=== PATIENT | male | born 1965 | race Caucasian/White ===

== ENCOUNTER → 2017-06-15 | Outpatient (CLI) | payer OTHER ==
--- NOTE | 2017-06-15 17:49 | DIAGNOSTIC IMAGING REPORT ---
LEFT FOREARM 2 VIEWS ROUTINE CLINICAL HISTORY: FOREARM PAIN L pain COMPARISON: None. DISCUSSION: The bones and joint spaces appear intact. There is no evidence of fracture, dislocation or bony disease. There is no evidence for soft tissue swelling. IMPRESSION: Negative study. The above report was generated using voice recognition software. It may contain grammatical, syntax or spelling errors. Electronically signed by: Venancio Madera M.D. 06/15/2017 5:48 PM Dictated Date/Time: 06/15/2017 5:47 PM
== END | disposition home or self-care (01) ==
LOC: C.RAD 17:35
PROVIDERS: ATTEND Physician Assistant
DX: M79.632 Pain in left forearm (principal); V80.010A Animal-rider injured by fall from or being thrown from horse in noncollision accident, initial encounter; X58.XXXA Exposure to other specified factors, initial encounter

== ENCOUNTER 2025-09-10 14:23 | Inpatient (IN) ==
--- NOTE | 2025-09-10 14:27 | Emergency Department Note ---
Impression & Plan Acute hypoxemic respiratory failure, Asthma with exacerbation ED Provider Note NAME: ANETTE BOSTON AGE: 60 SEX: M : 1965 ARRIVES VIA: Ambulance INFORMANT: Patient, ED PROVIDER(S): Fredi Fernández MD CHIEF COMPLAINT: Shortness of breath, outpatient referral MEDICAL DECISION MAKING: Patient presents with the above. Patient was noted to be 70% on room air here in the department. IV was established and blood work was obtained. Patient will maintain on several liters of nasal cannula supplemental oxygen. Lack of air movement on exam. Patient was ordered 2 g of IV magnesium over 20 minutes, IV methylprednisolone 125 mg, DuoNeb hour-long treatment patient was ordered IV Rocephin and p.o. azithromycin. Blood reassessment the patient was feeling proved. Increased air movement. Patient with a normal white count hemoglobin and platelet count. The patient's kidney function is unremarkable. VBG with a VBG pCO2 of 70 VBG pH is 7 3. Patient with a sugar of 165 nonfasting not DKA. Urinalysis does not show evidence of obvious infection. Given the patient's significant hypoxia with oxygen requirement the patient does require admission at this time. I did speak the on-call hospitalist service, Marsha Connelly PA-C with Dr. Banegas Critical Care: I have personally spent 55 minutes of critical care time in direct management of this patient. This includes bedside care, interpretation of diagnostic studies, and testing, discussion with consultants, patient, and family members, and other require inpatient management activities. This 55 minutes is in excess of all separately billable procedures. Discussion w/ other healthcare providers: Dr. Banegas inpatient medicine service Prior /Outside records reviewed: None Differential diagnosis: Reactive airway disease, pneumonia, pneumothorax, COPD, CHF, ACS, pulmonary embolism, musculoskeletal, GERD as well as other pathologies were considered. Diagnostics, as interpreted by me: ECG: Normal sinus rhythm, ventricular rate of 60, short [place], normal QRS duration, normal axis no ST elevations. Cardiac monitoring: An order was placed for continuous cardiac monitoring. The monitor shows a rate of 65 with sinus rhythm. Patient was placed on pulse oximetry Medical decision rules: None Imaging studies: I informally interpreted the patient's chest x-ray does not show obvious pneumonia or pneumothorax with formal report to follow. HPI: Patient presents due to concern for shortness of breath. The patient reportedly had progressively worsening symptoms over the last 5 or 6 days. History of asthma. Remote history of smoking quit smoking about 10 years ago. The patient has been using his albuterol inhaler but without significant improvement in symptoms. Patient was seen at [facility] walk-in clinic noted to be hypoxic at 82%. He was sent over via ambulance and did receive a DuoNeb treatment. Patient does complain of dyspnea on exertion. No significant dyspnea at rest. The patient has not been to the emergency department for an asthma exacerbation before. Patient states that he is having green productive sputum. He denies any abdominal pain or chest pain. No nausea vomiting or diarrhea. He denies any recent surgeries procedures or hospitalizations no history of heart disease. The patient denies any leg swelling or calf pain no history of DVT or PE. No recent prolonged car plane travel. PAST MEDICAL HISTORY: Asthma, hyperlipidemia PAST SURGICAL HISTORY: See Below SOCIAL HISTORY: Former smoker HOME MEDICATIONS: See Below ALLERGIES: See Below VITALS: See Below PHYSICAL EXAMINATION: GENERAL: NAD, non-toxic. Wearing glasses. EYE EXAM: Normal conjunctiva. PERRL, no anisocoria and EOM's grossly intact w/o pain. OROPHARYNX: Moist mucus membranes, grossly normal dentition. NECK: Trachea midline, no stridor. LUNGS: Clear to auscultation. Normal chest wall mechanics. HEART: NSR, no MRG. ABDOMEN: Abdomen soft, non-tender, no masses, no rebound or guarding. BACK: No CVA TTP. SKIN: No rashes and no bruising. UPPER EXTREMITIES: Upper extremities are grossly normal. LOWER EXTREMITIES: Grossly normal, 1-2+ symmetric lower extremity edema without calf pain or erythema. NEURO EXAM: Awake and alert, follows commands, no obvious facial asymmetry, normal speech, moves all 4 extremities. Past Med/Surg History Problem List (Updated 09/10/25 @ 17:31 by Fredi Fernández MD) Asthma with exacerbation (Acute) Acute hypoxemic respiratory failure (Acute) Social History Smoking Status: Never smoker Preferred Language: Panamanian Feels Safe at Home: Yes Allergies Allergies Allergy/AdvReac Type Severity Reaction Status Date / Time No Known Allergies Allergy Verified 09/10/25 16:18 Home Meds Home Medications Medication Instructions Recorded Confirmed albuterol sulfate 90 mcg/actuation 2 puff inhalation .Q4-6H PRN 09/10/25 09/10/25 aerosol inhaler Wheezing atorvastatin 40 mg tablet 40 mg PO DAILY 09/10/25 09/10/25 metformin 750 mg tablet,extended 750 mg PO BID 09/10/25 09/10/25 release 24 hr Results & Data (ED) Vital Signs Vital Signs - 24 hr 09/10/25 14:33 09/10/25 14:36 09/10/25 14:52 Temperature 36.6 C Temperature Source Oral Pulse Rate 62 63 Pulse Rate [Left Apical] Pulse Rhythm Regular Respiratory Rate 20 Respiratory Effort / Characteristics Respiratory Depth Normal Respiratory Pattern Blood Pressure 149/85 H Blood Pressure [Left Arm] Blood Pressure Mean 106 Blood Pressure Mean [Left Arm] Blood Pressure Position Sitting Pulse Oximetry 79 L 98 Oxygen Delivery Method Room Air Nasal Cannula Oxygen Flow Rate 2 Sepsis Recent Fever Within 48 Hours No Sepsis New/Unexplained Change in Mental Status No Sepsis Action Taken by Nursing No Action Required 09/10/25 15:28 09/10/25 16:10 09/10/25 17:00 Temperature Temperature Source Pulse Rate Pulse Rate [Left Apical] 65 72 Pulse Rhythm Respiratory Rate 22 16 Respiratory Effort / Characteristics Non-Labored Spontaneous Non-Labored Spontaneous Respiratory Depth Normal Normal Respiratory Pattern Regular Regular Blood Pressure Blood Pressure [Left Arm] 145/79 H 155/81 H Blood Pressure Mean Blood Pressure Mean [Left Arm] 101 105 Blood Pressure Position Pulse Oximetry 97 96 90 Oxygen Delivery Method Nebulizer Nasal Cannula Nasal Cannula Oxygen Flow Rate 7 2 5 Sepsis Recent Fever Within 48 Hours Sepsis New/Unexplained Change in Mental Status Sepsis Action Taken by [facility] Medications Current Medication List: was personally reviewed by me Laboratory Data Attestation: I reviewed the patient's lab results. 09/10/25 14:45 09/10/25 14:45 Lab Results 09/10/25 09/10/25 Range/Units 14:45 16:59 WBC 8.18 (4.8-10.8) K/ul RBC 4.96 (4.70-6.10) M/uL Hgb 15.3 (14.0-18.0) g/dl Hct 47.8 (42.0-52.0) % MCV 96.4 (80.0-100.0) fL MCH 30.8 (25.0-34.0) pg MCHC 32.0 (32.0-36.0) g/dL RDW Std Deviation 49.5 H (36.4-46.3) fL RDW Coeff of Josiah 14.6 H (11.5-14.5) % Plt Count 278 (130-400) K/uL MPV 9.4 (9.4-12.4) fL Immature Gran % (Auto) 0.4 % Neut % (Auto) 64.9 % Lymph % (Auto) 22.1 % [place] % (Auto) 8.6 % Eos % (Auto) 3.4 % Baso % (Auto) 0.6 % Neut # (Auto) 5.31 (1.40-6.50) K/uL Lymph # (Auto) 1.81 (1.20-3.40) K/uL [place] # (Auto) 0.70 H (0.11-0.59) K/uL Eos # (Auto) 0.28 (0.00-0.50) K/uL Baso # (Auto) 0.05 (0.00-0.20) K/uL Immature Gran # (Auto) 0.03 (0.01-0.20) K/uL VBG pH 7.30 L (7.36-7.41) VBG pCO2 70 H (38-50) mmHg VBG pO2 43 mmHg VBG HCO3 34 mmol/L VBG O2 Saturation 68.2 % VBG Base Excess 5.6 mEq/L Sodium 140 (136-145) mmol/L Potassium 4.6 (3.5-5.1) mmol/L Chloride 97 L (98-107) mmol/L Carbon Dioxide 36 H (21-32) mmol/L Anion Gap 7 (3-11) BUN 15 (6-23) mg/dl Creatinine 0.84 (0.6-1.4) mg/dl Est Cr Clr Drug Dosing 112.2 ml/min eGFR 99.83 BUN/Creatinine Ratio 17.9 (10-20) Glucose 165 H (70-99(Fasting)) mg/dl Calcium 9.9 (8.6-10.3) mg/dl Magnesium 2.0 (1.7-2.4) mg/dl Total Bilirubin 0.4 (0.2-1.0) mg/dl AST 24 (13-39) U/L ALT 45 (7-52) U/L Alkaline Phosphatase 144 H (34-104) U/L Total Protein 7.7 (6.0-8.3) gm/dl Albumin 4.4 (3.4-5.0) gm/dl Globulin 3.3 (2.5-4.0) gm/dl Albumin/Globulin Ratio 1.3 (0.9-2) Procalcitonin < 0.02 (0-0.5) ng/ml Urine Color Yellow Urine Appearance Clear (Clear) Urine pH 7.0 (4.5-7.5) Ur Specific [place] 1.014 (1.000-1.030) Urine Protein Trace H (Negative) Urine Glucose (UA) Negative (Negative) Urine Ketones Negative (Negative) Urine Blood Negative (Negative) Urine Nitrite Negative (Negative) Urine Bilirubin Negative (Negative) Urine Urobilinogen Negative (Negative) Ur Leukocyte Esterase Negative (Negative) Urine WBC (Auto) 0-5 (0-5) /hpf Urine RBC (Auto) 0-2 (0-2) /hpf U Hyaline Cast (Auto) 0-2 (0-2) /lpf U Epithel Cells (Auto) 0-2 (0-2) /hpf Urine Bacteria (Auto) None Seen (None Seen) Urine Comment Adenovirus (PCR) Not Detected (NotDetected) B. pertussis DNA (PCR) Not Detected (NotDetected) B.parapertussis DNA PCR Not Detected (NotDetected) C. pneumoniae DNA (PCR) Not Detected (NotDetected) Coronavirus OC43 (PCR) Not Detected (NotDetected) Coronavirus HKU1 (PCR) Not Detected (NotDetected) Coronavirus 229E (PCR) Not Detected (NotDetected) SARS-CoV-2 (PCR) Not Detected (NotDetected) Coronavirus NL63 (PCR) Not Detected (NotDetected) Human Metapneumovir PCR Not Detected (NotDetected) Influenza Type A (PCR) Not Detected (NotDetected) Influenza Type B (PCR) Not Detected (NotDetected) M. pneumoniae (PCR) Not Detected (NotDetected) Parainfluenza 1 (PCR) Not Detected (NotDetected) Parainfluenza 2 (PCR) Not Detected (NotDetected) Parainfluenza 3 (PCR) Not Detected (NotDetected) Parainfluenza 4 (PCR) Not Detected (NotDetected) RSV (PCR) Not Detected (NotDetected) Entero/Rhino (PCR) Not Detected (NotDetected) Administered Medications Discontinued Medications Albuterol (Albut/Ipratrop 3mg/0.5mg Neb 3 Ml Vial) 12 ml INH ONE STA Stop: 09/10/25 14:52 Last Admin: 09/10/25 15:02 Dose: 12 ml Documented By: watson Azithromycin (Azithromycin 250 Mg Tab) 500 mg PO NOW ONE Stop: 09/10/25 15:33 Last Admin: 09/10/25 15:48 Dose: 500 mg Documented By: [facility] Magnesium Sulfate/Dextrose (Magnesium Sulfate / D5w) 1 gm in 100 mls @ 600 mls/hr IV Q10M KENNEY Stop: 09/10/25 15:11 Last Infusion: 09/10/25 15:40 Dose: Infused Documented By: [facility] Admin: 09/10/25 15:26 Dose: 600 mls/hr Documented By: Infusion: 09/10/25 15:15 Dose: Infused Documented By: [facility] Admin: 09/10/25 15:04 Dose: 600 mls/hr Documented By: watson Sodium Chloride (Nss) 500 mls @ 999 mls/hr IV .Q31M ONE Stop: 09/10/25 15:21 Last Infusion: 09/10/25 15:52 Dose: Infused Documented By: [facility] Admin: 09/10/25 15:05 Dose: 999 mls/hr Documented By: watson Ceftriaxone Sodium (Rocephin) 2,000 mg in 50 mls @ 100 mls/hr IV NOW STA Stop: 09/10/25 16:01 Last Infusion: 09/10/25 16:25 Dose: Infused Documented By: watson Admin: 09/10/25 15:52 Dose: 100 mls/hr Documented By: [facility] Methylprednisolone (Methylprednisolone 125 Mg/2 Ml Vial) 125 mg IV NOW STA Stop: 09/10/25 14:52 Last Admin: 09/10/25 15:04 Dose: 125 mg Documented By: watson Imaging Data Radiologist's Impression: Chest X-Ray 09/10/25 14:52 XR chest 1V portable CLINICAL HISTORY: Dyspnea COMPARISON STUDY: None FINDINGS: Heart size and pulmonary vasculature are normal. No consolidation or pleural effusion seen. No pneumothorax. IMPRESSION: No acute findings. ACT 112: Negative or not required by law. Electronically signed by: Alden White M.D. 09/10/2025 3:14 PM Discharge Plan Visit Data Chief Complaint: Shortness of Breath/Dyspnea Stated Complaint: SOB ED Provider: Fredi Fernández Discharge Problem: Acute hypoxemic respiratory failure, Asthma with exacerbation Patient Disposition: Admitted As Inpatient Condition: Good Forms Stand Alone Forms: [facility] [employer] Prescriptions Prescriptions: No Action metformin 750 mg tablet extended release 24 hr 750 mg PO BID atorvastatin 40 mg tablet 40 mg PO DAILY albuterol sulfate 90 mcg/actuation HFA aerosol inhaler 2 puff INHALATION .Q4-6H PRN (Reason: Wheezing) Referrals Referrals: Kayce Esquivel PA-C [Outside Practitioners] - Discharge Problem: Asthma with exacerbation Qualifiers: Asthma severity: severe Asthma persistence: unspecified Qualified Code(s): J 45.901 - Unspecified asthma with (acute) exacerbation
[2025-09-10] MEDS: ALBUT/IPRATROP 3MG/0.5MG NEB 3 ML VIAL INH STA (15:02)
[2025-09-10] MEDS: MAGNESIUM SULFATE / D5W 1 GM/100 ML BAG IV SCH (15:04)
[2025-09-10] MEDS: SODIUM CHLORIDE 0.9% 500 ML IV ONE (15:05)
[2025-09-10 15:06] LABS: Hematocrit (blood only) 47.8 % (42.0-52.0); Hemoglobin 15.3 g/dl (14.0-18.0); Immature Granulocytes # (auto) 0.03 K/uL (0.01-0.20); Immature Granulocytes % (auto) 0.4 %; Mean Corpuscular Hemoglobin 30.8 pg (25.0-34.0); Mean Corpuscular Volume 96.4 fL (80.0-100.0); Platelet Count 278 K/uL (130-400); RDW Standard Deviation 49.5 fL (36.4-46.3); Red Blood Count 4.96 M/uL (4.70-6.10); White Blood Count 8.18 K/ul (4.8-10.8)
--- NOTE | 2025-09-10 15:16 | XRay Report ---
XR chest 1V portable CLINICAL HISTORY: Dyspnea COMPARISON STUDY: None FINDINGS: Heart size and pulmonary vasculature are normal. No consolidation or pleural effusion seen. No pneumothorax. IMPRESSION: No acute findings. ACT 112: Negative or not required by law. Electronically signed by: Alden White M.D. 09/10/2025 3:14 PM
[2025-09-10 15:25] LABS: Alanine Aminotransferase 45.0 U/L (7-52); Albumin Globulin Ratio 1.3 (0.9-2); Albumin Level 4.4 gm/dl (3.4-5.0); Alkaline Phosphatase 144.0 U/L (34-104); Anion Gap 7.0 (3-11); Bilirubin,Total 0.4 mg/dl (0.2-1.0); Blood Urea Nitrogen 15.0 mg/dl (6-23); Calcium 9.9 mg/dl (8.6-10.3); Carbon Dioxide 36.0 mmol/L (21-32); Chloride 97.0 mmol/L (98-107); Creatinine Clr Calc Pharmacy 112.2 ml/min; Globulin 3.3 gm/dl (2.5-4.0); Glucose 165.0 mg/dl (70-99(Fasting)); Magnesium 2.0 mg/dl (1.7-2.4); Potassium 4.6 mmol/L (3.5-5.1); Sodium 140.0 mmol/L (136-145); Total Protein 7.7 gm/dl (6.0-8.3)
[2025-09-10] MEDS: AZITHROMYCIN 250 MG TAB PO ONE (15:48)
[2025-09-10 15:49] LABS: Chlamydia pneumoniae PCR Not Detected (NotDetected); Coronavirus 229E PCR Not Detected (NotDetected); Coronavirus CoV-2 (COVID19)PCR Not Detected (NotDetected); Coronavirus HKU1 PCR Not Detected (NotDetected); Coronavirus NL63 PCR Not Detected (NotDetected); Coronavirus OC43PCR Not Detected (NotDetected); Human Metapneumovirus PCR Not Detected (NotDetected); Parainfluenza Virus 1 PCR Not Detected (NotDetected); Parainfluenza Virus 2 PCR Not Detected (NotDetected); Parainfluenza Virus 3 PCR Not Detected (NotDetected); Parainfluenza Virus 4 PCR Not Detected (NotDetected); Respiratory Syncytial VirusPCR Not Detected (NotDetected); Rhinovirus/Enterovirus PCR Not Detected (NotDetected)
[2025-09-10] MEDS: cefTRIAXone SODIUM 2,000 MG/50 ML BAG IV STA (15:52)
[2025-09-10 17:09] LABS: Base Excess VBG 5.6 mEq/L; HCO3 VBG 34 mmol/L; Oxygen Saturation VBG 68.2 %; PCO2 VBG 70 mmHg (38-50); PO2 VBG 43 mmHg; pH VBG 7.30 (7.36-7.41)
[2025-09-10 17:11] LABS: Appearance Urine Clear (Clear); Bacteria Urine Automated None Seen (None Seen); Cast Urine Automated 0-2 /lpf (0-2); Epithelial Cell Urine Auto 0-2 /hpf (0-2); Glucose Urine UA Negative (Negative); RBC Urine Automated 0-2 /hpf (0-2); WBC Urine Automated 0-5 /hpf (0-5)
--- NOTE | 2025-09-10 17:11 | History & Physical Report ---
Date of Service September 10, 2025 Assessment & Plan (1) Acute hypoxemic respiratory failure: (2) Asthma with exacerbation: (3) Type 2 diabetes mellitus: (4) Dyslipidemia: Plan This is a 60 y/o male with a history of asthma, dyslipidemia, and diabetes who presented to the ED from urgent care today with worsening shortness of breath and low oxygen sats. Initial work-up in the ED revealed pulse 79% on RA so oxygen initiated. Given 2 g of mag sulfate, hour long neb, methylprednisolone 125 mg, and empiric antibiotics with azithromycin/ceftriaxone. Referred for admission due to persistent oxygen requirement. Labs included CO2 elevated at 36, WBCs normal at 8.18. Pt referred for admission for further workup and management. VBG ordered and showed pH low at 7.30, pCO2 elevated at 70. BioFire negative. #Hypoxic respiratory failure - may be multifactorial #Possible pneumonia #Asthma vs. COPD with exacerbation - Admit to PCU - CT chest to r/o PE - Continue antibiotics with azithromycin/ceftriaxone - IV methylprednisolone 40 mg BID - DuoNeb QID scheduled, Q2 hrs prn - BiPAP due to respiratory acidosis with CO2 retention - repeat ABG one hour after starting BiPAP - Sputum culture - Incentive spirometry, flutter valve - Continue supplemental O2 to maintain sats - ECHO, check BNP to evaluate for cardiac component to symptoms #Type 2 Diabetes - Hold metformin - Diabetic diet - BSG ACHS - A1c in the AM #Dyslipidemia - Chronic, continue statin - Lipid panel in the AM CT chest showed heavy coronary calcifications - add aspirin 81 mg daily, await ECHO, may need cardio eval Pt seen and reviewed with collaborating physician, Dr. Banegas. Plan of care discussed and as outlined above. Code status: full code DVT prophylaxis: Valeria Connelly PA-C History of Present Illness Chief Complaint: worsening trouble breathing Primary Care Provider: NO PCP This is a 60 y/o male with a history of asthma, dyslipidemia, and diabetes who presented to the ED from urgent care today with worsening shortness of breath and low oxygen sats. Pt reports ongoing respiratory issues for several years for which he has seen his PCP multiples times and has been given inhalers, which he never felt like helped much. However, over the last few weeks, his breathing has significantly worsened. He notes dyspnea with exertion, that worsens by evening. He notes wheezing, especially with exertion and at night. He has a chronic cough, productive of sputum but no hemoptysis. Cough has not significantly worsened over the last few weeks. He denies fevers, chills, night sweats, unexplained weight loss, chest pain. He occasionally has the sensation of heart skipping a beat, no racing heart. He has noted chest tightness at times. 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 He quit smoking several years ago. He denies history of pneumonia as an adult but notes that he was intermittently admitted due to respiratory issues his first year of life. Allergies Allergy/AdvReac Type Severity Reaction Status Date / Time No Known Allergies Allergy Verified 09/10/25 16:18 Home Medications Medication Instructions Recorded Confirmed Type albuterol sulfate 90 mcg/actuation 2 puff inhalation .Q4-6H PRN 09/10/25 09/10/25 History aerosol inhaler Wheezing atorvastatin 40 mg tablet 40 mg PO DAILY 09/10/25 09/10/25 History metformin 750 mg tablet,extended 750 mg PO BID 09/10/25 09/10/25 History release 24 hr Past Med/Surg History Problem List (Updated 09/10/25 @ 18:09 by Jennifer Connelly PA-C) Asthma with exacerbation (Acute) Acute hypoxemic respiratory failure (Acute) Medical History (Updated 09/10/25 @ 18:09 by Jennifer Connelly PA-C) Former tobacco use Asthma Type 2 diabetes mellitus Dyslipidemia Social History (Updated 09/10/25 @ 17:37 by Jennifer Connelly PA-C) Smoking Status: Former smoker Hx Alcohol Use: No Hx Substance Use: No Preferred Language: Filipino current occupational status: employed 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 Feels Safe at Home: Yes Review of Systems Review of Systems: All systems reviewed & are unremarkable except as noted in Subjective Physical Exam Physical Exam: General: awake, alert, NAD HEENT: no scleral icterus, moist oral mucosa Neck: supple, trachea midline Heart: RRR Lungs: diminished breath sounds throughout, faint crackles at bilateral bases, faint end exp wheeze Abdomen: soft, NT, +BS Extremities: no pedal edema Skin: warm, dry, no jaundice or cyanosis Neurologic: Ox3, no confusion or dysarthria Results & Data Results & Data Vital Signs (Past 12 Hours) Vital Signs Temp Pulse Pulse Resp BP BP Pulse Ox 09/10/25 17:00 72 16 155/81 H 90 09/10/25 16:10 96 09/10/25 15:28 65 22 145/79 H 97 09/10/25 14:52 98 09/10/25 14:36 63 09/10/25 14:33 36.6 C 62 20 149/85 H 79 L O2 Del Method O2 Flow Rate 09/10/25 17:00 Nasal Cannula 5 09/10/25 16:10 Nasal Cannula 2 09/10/25 15:28 Nebulizer 7 09/10/25 14:52 Nasal Cannula 2 09/10/25 14:36 09/10/25 14:33 Room Air Laboratory Results Lab Results 09/10/25 09/10/25 Range/Units 14:45 16:59 WBC 8.18 (4.8-10.8) K/ul RBC 4.96 (4.70-6.10) M/uL Hgb 15.3 (14.0-18.0) g/dl Hct 47.8 (42.0-52.0) % MCV 96.4 (80.0-100.0) fL MCH 30.8 (25.0-34.0) pg MCHC 32.0 (32.0-36.0) g/dL RDW Std Deviation 49.5 H (36.4-46.3) fL RDW Coeff of Josiah 14.6 H (11.5-14.5) % Plt Count 278 (130-400) K/uL MPV 9.4 (9.4-12.4) fL Immature Gran % (Auto) 0.4 % Neut % (Auto) 64.9 % Lymph % (Auto) 22.1 % [place] % (Auto) 8.6 % Eos % (Auto) 3.4 % Baso % (Auto) 0.6 % Neut # (Auto) 5.31 (1.40-6.50) K/uL Lymph # (Auto) 1.81 (1.20-3.40) K/uL [place] # (Auto) 0.70 H (0.11-0.59) K/uL Eos # (Auto) 0.28 (0.00-0.50) K/uL Baso # (Auto) 0.05 (0.00-0.20) K/uL Immature Gran # (Auto) 0.03 (0.01-0.20) K/uL VBG pH 7.30 L (7.36-7.41) VBG pCO2 70 H (38-50) mmHg VBG pO2 43 mmHg VBG HCO3 34 mmol/L VBG O2 Saturation 68.2 % VBG Base Excess 5.6 mEq/L Sodium 140 (136-145) mmol/L Potassium 4.6 (3.5-5.1) mmol/L Chloride 97 L (98-107) mmol/L Carbon Dioxide 36 H (21-32) mmol/L Anion Gap 7 (3-11) BUN 15 (6-23) mg/dl Creatinine 0.84 (0.6-1.4) mg/dl Est Cr Clr Drug Dosing 112.2 ml/min eGFR 99.83 BUN/Creatinine Ratio 17.9 (10-20) Glucose 165 H (70-99(Fasting)) mg/dl Calcium 9.9 (8.6-10.3) mg/dl Magnesium 2.0 (1.7-2.4) mg/dl Total Bilirubin 0.4 (0.2-1.0) mg/dl AST 24 (13-39) U/L ALT 45 (7-52) U/L Alkaline Phosphatase 144 H (34-104) U/L Total Protein 7.7 (6.0-8.3) gm/dl Albumin 4.4 (3.4-5.0) gm/dl Globulin 3.3 (2.5-4.0) gm/dl Albumin/Globulin Ratio 1.3 (0.9-2) Procalcitonin < 0.02 (0-0.5) ng/ml Urine Color Yellow Urine Appearance Clear (Clear) Urine pH 7.0 (4.5-7.5) Ur Specific [place] 1.014 (1.000-1.030) Urine Protein Trace H (Negative) Urine Glucose (UA) Negative (Negative) Urine Ketones Negative (Negative) Urine Blood Negative (Negative) Urine Nitrite Negative (Negative) Urine Bilirubin Negative (Negative) Urine Urobilinogen Negative (Negative) Ur Leukocyte Esterase Negative (Negative) Urine WBC (Auto) 0-5 (0-5) /hpf Urine RBC (Auto) 0-2 (0-2) /hpf U Hyaline Cast (Auto) 0-2 (0-2) /lpf U Epithel Cells (Auto) 0-2 (0-2) /hpf Urine Bacteria (Auto) None Seen (None Seen) Urine Comment Adenovirus (PCR) Not Detected (NotDetected) B. pertussis DNA (PCR) Not Detected (NotDetected) B.parapertussis DNA PCR Not Detected (NotDetected) C. pneumoniae DNA (PCR) Not Detected (NotDetected) Coronavirus OC43 (PCR) Not Detected (NotDetected) Coronavirus HKU1 (PCR) Not Detected (NotDetected) Coronavirus 229E (PCR) Not Detected (NotDetected) SARS-CoV-2 (PCR) Not Detected (NotDetected) Coronavirus NL63 (PCR) Not Detected (NotDetected) Human Metapneumovir PCR Not Detected (NotDetected) Influenza Type A (PCR) Not Detected (NotDetected) Influenza Type B (PCR) Not Detected (NotDetected) M. pneumoniae (PCR) Not Detected (NotDetected) Parainfluenza 1 (PCR) Not Detected (NotDetected) Parainfluenza 2 (PCR) Not Detected (NotDetected) Parainfluenza 3 (PCR) Not Detected (NotDetected) Parainfluenza 4 (PCR) Not Detected (NotDetected) RSV (PCR) Not Detected (NotDetected) Entero/Rhino (PCR) Not Detected (NotDetected) Diagnostic Findings Chest X-Ray 09/10/25 14:52 XR chest 1V portable CLINICAL HISTORY: Dyspnea COMPARISON STUDY: None FINDINGS: Heart size and pulmonary vasculature are normal. No consolidation or pleural effusion seen. No pneumothorax. IMPRESSION: No acute findings. ACT 112: Negative or not required by law. Electronically signed by: Alden White M.D. 09/10/2025 3:14 PM Medications Administered Discontinued Medications Albuterol (Albut/Ipratrop 3mg/0.5mg Neb 3 Ml Vial) 12 ml INH ONE STA Stop: 09/10/25 14:52 Last Admin: 09/10/25 15:02 Dose: 12 ml Documented By: watson Azithromycin (Azithromycin 250 Mg Tab) 500 mg PO NOW ONE Stop: 09/10/25 15:33 Last Admin: 09/10/25 15:48 Dose: 500 mg Documented By: GEETA Magnesium Sulfate/Dextrose (Magnesium Sulfate / D5w) 1 gm in 100 mls @ 600 mls/hr IV Q10M KENNEY Stop: 09/10/25 15:11 Last Infusion: 09/10/25 15:40 Dose: Infused Documented By: Admin: 09/10/25 15:26 Dose: 600 mls/hr Documented By: Infusion: 09/10/25 15:15 Dose: Infused Documented By: Admin: 09/10/25 15:04 Dose: 600 mls/hr Documented By: watson Sodium Chloride (Nss) 500 mls @ 999 mls/hr IV .Q31M ONE Stop: 09/10/25 15:21 Last Infusion: 09/10/25 15:52 Dose: Infused Documented By: Admin: 09/10/25 15:05 Dose: 999 mls/hr Documented By: watson Ceftriaxone Sodium (Rocephin) 2,000 mg in 50 mls @ 100 mls/hr IV NOW STA Stop: 09/10/25 16:01 Last Infusion: 09/10/25 16:25 Dose: Infused Documented By: watson Admin: 09/10/25 15:52 Dose: 100 mls/hr Documented By: GIUSEPPE Ioversol (Optiray 320 125ml) 120 ml IV ONCE ONE Stop: 09/10/25 17:35 Last Admin: 09/10/25 17:34 Dose: 120 ml Documented By: YOLANDA Methylprednisolone (Methylprednisolone 125 Mg/2 Ml Vial) 125 mg IV NOW STA Stop: 09/10/25 14:52 Last Admin: 09/10/25 15:04 Dose: 125 mg Documented By: watson Supervising Physician Co-Signing Physician Notes Attending Addendum: Case reviewed with the advanced practitioner. I have personally performed a history and physical examination on the patient. I have reviewed the advanced practitioner's documentation on the date of service referenced in note, and I agree with, and take responsibility for the plan of care. please refer to her notes for full details patient seen and examined, records reviewed by myself as well on exam, patient seen resting in bed, comfortable on Bipap states breathing is about the same no active shortness of breath, chest pain no other symptoms VS noted and reviewed oriented x3 not in distress, speaks in sentences with no effort nor accessory muscle use normal rate, regular rhythm, no murmurs diminished breath sounds billaterally, no wheezing non distended, soft, nontender no bipedal edema, erythema, warmth no neuro deficits all labs, imaging noted and reviewed ASSESSMENT AND PLAN> COPD EXACERBATION POSSIBLE MILD PNEUMONIA HYPERCAPNEIC RESPIRATORY SECONDARY TO ABOVE CT chest no acute PE IV steroids, Nebs scheduled, IV Ceftri + Azithro continue Bipap Pulm Consult other diagnoses and plan of care as per advanced practitioner's notes I spent a total of 40 minutes coordinating, documenting, and providing care for this patient, excluding time spent in the performance of separately billed services or time spent by another provider/QHP. 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
[2025-09-10] MEDS: OPTIRAY 320 125ml IV ONE (17:34)
--- NOTE | 2025-09-10 17:51 | CT Scan Report ---
CT pulmonary angiogram with IV contrast History: Chest pain COMPARISON: None TECHNIQUE: CT angiography of the chest was performed without IV contrast followed by IV contrast, including 3D post processing CTA image reconstruction. Dose reduction techniques were achieved by using automatic exposure control and/or adjustment of mA and/or kV according to patient size and/or use of iterative reconstruction technique. FINDINGS: Diagnostic quality: Adequate There is no evidence for pulmonary embolism. The heart is not enlarged. There is no pericardial effusion. There are no abnormally enlarged hilar or mediastinal lymph nodes. Calcified subcarinal and right hilar lymph nodes due to old granulomatous disease. Heavy coronary calcifications. The central tracheobronchial tree is clear. The lungs are clear. There is no pleural effusion. Mild streaky bibasilar atelectasis. The lungs appear emphysematous. Limited visualized upper abdomen. No destructive osseous changes are seen. IMPRESSION: No evidence for pulmonary embolism. Electronically signed by Jose Patino 09-10-2025 5:49 PM
[2025-09-10] MEDS: ALBUT/IPRATROP 3MG/0.5MG NEB 3 ML VIAL NEB SCH (19:38)
[2025-09-10 20:13] LABS: iSTAT Art Bld Gas Base Excess 4.0 mmol/L (-9-1.8); iSTAT Art Bld Gas pCO2 Correct 67 mmHg (35-46); iSTAT Art Bld Gas pH Corrected 7.276 (7.35-7.45); iSTAT Arterial Blood Gas pO2 C 73
[2025-09-10] MEDS ORDERED: GLUCAGON FOR INJ 1 MG VIAL SQ PRN (20:36)
[2025-09-10] MEDS ORDERED: CARBOHYDRATES FOR HYPOGLYCEMIA PO PRN (20:36)
[2025-09-10] MEDS ORDERED: GLUCOSE 40% GEL 15 GM TUBE PO PRN (20:36)
[2025-09-10] MEDS ORDERED: DEXTROSE 50% 50 ML SYRINGE IV PRN (20:36)
[2025-09-10] MEDS ORDERED: ACETAMINOPHEN 325 MG TAB PO PRN (20:36)
[2025-09-10] MEDS ORDERED: GLUCOSE 10 TAB/TUBE PO PRN (20:36)
[2025-09-10 20:52] LABS: Base Excess VBG 3.6 mEq/L; HCO3 VBG 31 mmol/L; Oxygen Saturation VBG 94.0 %; PCO2 VBG 61 mmHg (38-50); PO2 VBG 71 mmHg; pH VBG 7.32 (7.36-7.41)
[2025-09-10] MEDS: INSULIN ASPART PER UNIT CHARGE SC SCH (21:04)
[2025-09-10] MEDS: guaiFENesin 600 MG TABCR PO SCH (21:05)
[2025-09-11] MEDS: ASPIRIN 81 MG ECTAB PO SCH (01:49)
[2025-09-11 06:05] LABS: Hematocrit (blood only) 45.6 % (42.0-52.0); Hemoglobin 14.7 g/dl (14.0-18.0); Immature Granulocytes # (auto) 0.03 K/uL (0.01-0.20); Immature Granulocytes % (auto) 0.3 %; Mean Corpuscular Hemoglobin 30.9 pg (25.0-34.0); Mean Corpuscular Volume 96.0 fL (80.0-100.0); Platelet Count 273 K/uL (130-400); RDW Standard Deviation 49.4 fL (36.4-46.3); Red Blood Count 4.75 M/uL (4.70-6.10); White Blood Count 9.43 K/ul (4.8-10.8)
[2025-09-11 06:25] LABS: Anion Gap 6.0 (3-11); Blood Urea Nitrogen 15.0 mg/dl (6-23); Calcium 9.5 mg/dl (8.6-10.3); Carbon Dioxide 33.0 mmol/L (21-32); Chloride 99.0 mmol/L (98-107); Cholesterol 96.0 mg/dl (0-200); Creatinine Clr Calc Pharmacy 105.6 ml/min; Glucose 198.0 mg/dl (70-99(Fasting)); HDL Cholesterol 35.0 mg/dl; Potassium 5.4 mmol/L (3.5-5.1); Sodium 138.0 mmol/L (136-145); Triglycerides 82.0 mg/dl (0-150)
[2025-09-11 07:37] LABS: Hemoglobin A1C 8.5 % (4.5-5.6)
[2025-09-11 08:12] LABS: Base Excess VBG 9.4 mEq/L; HCO3 VBG 39 mmol/L; Oxygen Saturation VBG 73.5 %; PCO2 VBG 77 mmHg (38-50); PO2 VBG 44 mmHg; pH VBG 7.31 (7.36-7.41)
[2025-09-11] MEDS ORDERED: methylPREDNISolone 10 mg/mL (For Ped Dose < 7mg) IV SCH (09:00)
[2025-09-11] MEDS: ENOXAPARIN INJ 40 MG/0.4 ML SYR SQ SCH (09:08)
[2025-09-11] MEDS: ATORVASTATIN 40 MG TAB PO SCH (09:09)
[2025-09-11] MEDS: AZITHROMYCIN 250 MG TAB PO SCH (09:09)
[2025-09-11] MEDS: FLUTICASONE/VILANTEROL 100/25MCG 14 PUFFS/INHALER INH SCH (10:43)
--- NOTE | 2025-09-11 10:43 | Hospitalist Progress Note ---
Date of Service September 11, 2025 Assessment & Plan (1) Acute hypoxemic respiratory failure: (2) Asthma with exacerbation: (3) Type 2 diabetes mellitus: (4) Dyslipidemia: Plan Mr. Ernst is a 60 year old gentleman with a history of asthma, prior tobacco use (1-2 packs per day, quit 10 years ago), dyslipidemia, and diabetes, as well as occupational [place] exposure is admitted for evaluation of dyspnea on exertion and found to have acute hypoxic hypercapnic respiratory failure. CT was negative for PE, but revealed emphysematous changes, atelectasis, and calcified granulomas. It also is noted that patient has heavy coronary calcifications. He reports family history of CAD, but denies evaluation on himself. Suspect there is possibly a cardiac v pulm overlap in patient's presentation, with possible overlapping ZAMZAM. #Acute on chronic hypoxic hpercapnic respiratory failure - may be multifactorial #COPD with exacerbation, iso emphysematous changes on CT CT chest to r/o PE negative for PE, but noted emphysematous changes suspect acute acidosis with compensation Occupational exposure to [place] dust and prior tobacco use Pro bob <0.02, will continue with Azithromycin in setting of presumptive COPD, will discontinue CTX Continue IV methylprednisolone 40 mg BID Continue DuoNeb QID scheduled, Q2 hrs prn Start Breo inhaler Incentive spirometry, flutter valve Continue supplemental O2 to maintain sats Overnight pulse oximetry needs polysomnography as op wean o2, goal 88-90% #Coronary artery disease, per imaging patient never underwent cardiac workup previously CT with heavy coronary artery calcification BNP 29 ECHO pending continue statin and asa #Type 2 Diabetes A1C 8.5% this am - Hold metformin - Diabetic diet - BSG ACHS #Dyslipidemia - Chronic, continue statin LDL at goal, <70 Code status: full code DVT prophylaxis: Lovenox Admission and Anticipated Discharge Date Admission Date: September 10, 2025 Subjective Patient states that he doesn't feel "tight" or "wheezing", but just short of breath. He also reports fatigue and tiredness, as well as forgetfulness. He denies chest pain or anginal symptoms on exertion. He reports family history of heart disease, but denies any history for himself. Patient's girlfriend also reports patient snores very loudly, that it shakes the bed. Physical Exam Constitutional: WD/WN, vitals as above Respiratory: diminished, no crackles or wheezing audible Cardiovascular: RRR, no murmur, no edema Gastrointestinal (Abdomen): normal bowel sounds, soft, nontender, no hepatosplenomegaly Results & Data Results & Data Vital Signs (Past 12 Hours) Vital Signs Temp Pulse Pulse Resp BP BP Pulse Ox 09/11/25 09:43 09/11/25 07:52 36.5 C 64 18 148/77 H 92 09/11/25 07:30 58 L 15 91 09/11/25 03:51 09/11/25 02:24 38.3 C H 64 18 132/77 94 09/11/25 01:37 36.4 C L 71 20 158/84 H 92 09/10/25 23:36 09/10/25 22:47 66 O2 Del Method O2 Flow Rate 09/11/25 09:43 Nasal Cannula 4 09/11/25 07:52 Nasal Cannula 5 09/11/25 07:30 Nasal Cannula 5 09/11/25 03:51 Nasal Cannula 4 09/11/25 02:24 Nasal Cannula 4.0 09/11/25 01:37 Nasal Cannula 4 09/10/25 23:36 Nasal Cannula 4 09/10/25 22:47 Laboratory Results Short CBC 09/10/25 09/11/25 Range/Units 14:45 05:39 WBC 8.18 9.43 (4.8-10.8) K/ul Hgb 15.3 14.7 (14.0-18.0) g/dl Hct 47.8 45.6 (42.0-52.0) % Plt Count 278 273 (130-400) K/uL [facility] 09/10/25 09/11/25 09/11/25 14:45 05:39 08:00 Sodium 140 138 Potassium 4.6 5.4 H 5.0 Chloride 97 L 99 Carbon Dioxide 36 H 33 H BUN 15 15 Creatinine 0.84 0.72 Glucose 165 H 198 H Calcium 9.9 9.5 Liver Function 09/10/25 Range/Units 14:45 Total Bilirubin 0.4 (0.2-1.0) mg/dl AST 24 (13-39) U/L ALT 45 (7-52) U/L Alkaline Phosphatase 144 H (34-104) U/L Albumin 4.4 (3.4-5.0) gm/dl Urine 09/10/25 Range/Units 16:59 Urine Color Yellow Urine Appearance Clear (Clear) Urine pH 7.0 (4.5-7.5) Ur Specific [place] 1.014 (1.000-1.030) Urine Protein Trace H (Negative) Urine Glucose (UA) Negative (Negative) Medications Administered Home Medications Medication Instructions Recorded Confirmed Last Taken albuterol sulfate 90 mcg/actuation 2 puff inhalation .Q4-6H PRN 09/10/25 09/10/25 Unknown aerosol inhaler Wheezing atorvastatin 40 mg tablet 40 mg PO DAILY 09/10/25 09/10/25 Unknown metformin 750 mg tablet,extended 750 mg PO BID 09/10/25 09/10/25 Unknown release 24 hr Active Medications Generic Name Dose Route Start Last Admin Trade Name Freq PRN Reason Stop Dose Admin Albuterol 3 ml 09/10/25 19:00 09/11/25 07:29 Albut/Ipratrop 3mg/0.5mg Neb 3 Ml Vial NEB 10/10/25 18:59 3 ml QIDR KENNEY Administration Protocol Aspirin 81 mg 09/10/25 20:36 09/11/25 09:09 Aspirin 81 Mg Ectab PO 10/10/25 20:35 81 mg QAM KENNEY Administration Atorvastatin Calcium 40 mg 09/11/25 09:00 09/11/25 09:09 Atorvastatin 40 Mg Tab PO 10/11/25 08:59 40 mg DAILY KENNEY Administration Azithromycin 500 mg 09/11/25 09:00 09/11/25 09:09 Azithromycin 250 Mg Tab PO 09/16/25 08:59 500 mg QAM KENNEY Administration Enoxaparin Sodium 40 mg 09/11/25 09:00 09/11/25 09:08 Enoxaparin Inj 40 Mg/0.4 Ml Syr SQ 10/11/25 08:59 40 mg QAM KENNYE Administration Guaifenesin 600 mg 09/10/25 21:00 09/10/25 21:05 Guaifenesin 600 Mg Tabcr PO 10/10/25 20:59 600 mg Q12 KENNEY Administration Methylprednisolone 40 mg/ 0.64 mls @ 1.5 mls/min 09/11/25 09:00 09/11/25 09:07 Syringe IV 10/11/25 08:59 1.5 mls/min Q12H KENNEY Administration Insulin Aspart 0 units 09/10/25 21:00 09/11/25 08:55 Insulin Aspart Per Unit Charge SC 10/10/25 20:59 10 units ACHS KENNEY Administration (2) Asthma with exacerbation Asthma persistence: unspecified Asthma severity: severe Qualified Code(s): J45.901 - Unspecified asthma with (acute) exacerbation (3) Type 2 diabetes mellitus Diabetes mellitus weekend receptionist insulin use: without senior living use Diabetes mellitus complication status: without complication Qualified Code(s): E11.9 - Type 2 diabetes mellitus without complications
[2025-09-11] MEDS ORDERED: ALBUT/IPRATROP 3MG/0.5MG NEB 3 ML VIAL NEB PRN (11:07)
--- NOTE | 2025-09-11 14:20 | Communication Note ---
Date of Service: September 11, [address] Brown, suspects likely ILD possibly. Will continue Breo, discontinue steroids, continue with nocturnal pulse oximetry tonight. Patient to have PFTS and sleep study as op, as well as pulm f/u. Dispo likely tomorrow.
[2025-09-11] MEDS ORDERED: cefTRIAXone SODIUM 2,000 MG/50 ML BAG IV SCH (15:00)
[2025-09-11 15:08] LABS: Creatine Kinase 51.0 U/L (30-223)
--- NOTE | 2025-09-11 17:08 | Pulmonary Consultation ---
Date of Consultation September 11, 2025 Assessment & Plan (1) Dyspnea on exertion: * Probably multifactorial * Suspect element of Pulmonary Hypertension * Possible interstitial lung disease * Possible contribution from previous smoking, but less likely * Continue current bronchodilators and inhaled steroids, at least until PFTs become available * Needs PFTs and follow-up with Pulmonary (2) Acute hypoxemic respiratory failure: * Chronicity of hypoxemia is uncertain, but no previous history of need for supplemental Oxygen. * Possible interstitial lung disease, though acute bronchiolitis cannot be ruled out. (3) Chronic hypercapnic respiratory failure: * Probably multifactorial * Possible component of Obesity-Hypoventilation. * Cannot rule out contribution from untreated (suspected) sleep apnea * Will need Sleep Study. If negative for ZAMZAM, then consideration would be given for qualifying patient for NIV based on hypoventilation. (4) Enlarged pulmonary artery: * Suggestive of Pulmonary Hypertension * Can be multifactorial, including Obesity-hypoventilation * Can also be associated with etiology of (suspected) interstitial lung disease * Awaiting Echo results * Consideration will be given for right-heart catheterization, accordingly (5) Abnormal chest CT: * Interstitial change at the bases, bilaterally * Cannot rule out bronchiolitis, but unlikely (mostly wishful thinking) * Concern about association with exposure to [place]-dust, as well as animal products * Will run lab studies for etiologies of ILD, including Hypersensitivity Pneumonitis * May require lung biopsy, though difficult to be certain that this will make a difference in terms of treatment * Finish course of antibiotics * Would stop systemic steroids for the time being. Can be restarted if needed. (6) Observed sleep apnea: * From description of patient's breathing during sleep by his * Will need PSGM History of Present Illness Reason for Consultation: "copd exacerbation, hypercapnea" Attending Physician: Jenn Cardenas MD History of Present Illness The patient is a very pleasant 60-year-old male who presented to the ED due to worsening shortness of breath and hypoxia, following an outpatient referral from urgent care. He reported progressively worsening dyspnea over the preceding 5 to 6 days, with exertional symptoms, increased wheezingespecially at nightand a chronic productive cough with green sputum. He denied chest pain, abdominal pain, nausea, vomiting, diarrhea, fever, chills, night sweats, unexplained weight loss, or recent surgeries. He also denied any recent hospitalizations, history of heart disease, DVT, PE, or recent prolonged travel. 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 On arrival, he was found to be significantly hypoxic, with oxygen saturation as low as 70% on room air. He was started on supplemental oxygen via nasal cannula, and received IV magnesium, IV methylprednisolone, DuoNeb treatments, IV ceftriaxone, and oral azithromycin. His initial laboratory evaluation revealed a normal white blood cell count, hemoglobin, and platelets, with unremarkable kidney function. VBG demonstrated a pH of 7.30 and a pCO2 of 70. Chest x-ray did not show obvious infiltrates, and ECG showed normal sinus rhythm. CT chest revealed heavy coronary calcifications but no evidence of filling-defects in the pulmonary arteries. There were also minor emphysematous changes on the chest CTA, however, there was interstitial thickening at both bases, suspicious for possible acute bronchiolitic changes, but there are no previous studies for comparison. The pulmonary artery was also enlarged at around 35 mm diameter as well as backup of contrast into the hepatic veins, suggestive of pulmonary hypertension and increased pressure in the central venous system, respectively. His past medical history included asthma, dyslipidemia, and type 2 DM. Note from 09/11/2025: The patient reports feeling some better today, but continues with dyspnea on mild exertion. He denies significant cough. He denies previous knowledge of any leg swelling. I reviewed the imaging studies. CT chest revealed heavy coronary calcifications but no evidence of filling-defects in the pulmonary arteries. There were also minor emphysematous changes on the chest CTA, however, there was interstitial thickening at both bases, though acute bronchiolitic changes cannot be ruled out, and there are no previous studies for comparison. The pulmonary artery was also enlarged at around 35 mm diameter as well as backup of contrast into the hepatic veins, suggestive of pulmonary hypertension and increased pressure in the central venous system, respectively. The patient reports significant exposure to all sorts of animal related dusts, in addition to [place]dust. His describes significant abnormalities in his breathing pattern during sleep, and she gets scared about his breathing interruption during sleep. Allergies Allergy/AdvReac Type Severity Reaction Status Date / Time No Known Allergies Allergy Verified 09/10/25 16:18 Home Medications Medication Instructions Recorded Confirmed Type albuterol sulfate 90 mcg/actuation 2 puff inhalation .Q4-6H PRN 09/10/25 09/10/25 History aerosol inhaler Wheezing atorvastatin 40 mg tablet 40 mg PO DAILY 09/10/25 09/10/25 History metformin 750 mg tablet,extended 750 mg PO BID 09/10/25 09/10/25 History release 24 hr Patient History Medical History (Updated 09/11/25 @ 17:25 by Wander Brown MD) Former tobacco use Asthma Type 2 diabetes mellitus Dyslipidemia Social History (Updated 09/10/25 @ 17:37 by Jennifer Connelly PA-C) Smoking Status: Former smoker Tobacco Type: Smokeless Tobacco (Dip or Chew) Do You Dip or Chew Tobacco: Yes; Tobacco Cessation Education Requested by Patient: No Hx Alcohol Use: No Hx Substance Use: No Preferred Language: Belgian Communication Ability: Effective Case Operator Required: No Beliefs That Will Affect Care: None Current Living Situation: Alone and Significant Other current occupational status: employed 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 Obese. Skin: Warm and dry to touch. Noobvious lesions. Eyes: Anicteric.Noconjunctival hyperemia or exudates.No periorbital edema. ENT: No oral thrush. No oropharyngeal erythema or exudates. Modified-Mallampati 3 (Hard and soft palate seen). Neck: No palpable masses or adenopathy. Respiratory: Diffusely decreased breath sounds, no wheezing; fine bilateral basal crackles. No use of accessory muscles and no prolonged exhalation. Cardiac: Distant sounds, regular rhythm, no murmurs, no gallops, no rubs; could not appreciate JV pulse elevation. GI: Soft, nontender. Extremities No clubbing,no cyanosis,1+ edema. Neuro: No gross motor deficits. Seems appropriate. No facial-droop. Speech is clear. Results & Data Results & Data Vital Signs (Past 12 Hours) Vital Signs Temp Pulse Pulse Resp BP Pulse Ox Pulse Ox 09/11/25 15:57 72 09/11/25 15:34 36.6 C 65 18 129/80 93 09/11/25 12:30 86 L 09/11/25 12:00 88 L 09/11/25 11:35 36.9 C 66 18 136/75 92 09/11/25 11:14 55 L 09/11/25 09:43 09/11/25 07:52 36.5 C 64 18 148/77 H 92 09/11/25 07:30 58 L 15 91 O2 Del Method O2 Del Method O2 Flow Rate O2 Flow Rate 09/11/25 15:57 09/11/25 15:34 Nasal Cannula 4 09/11/25 12:30 Nasal Cannula 4 09/11/25 12:00 Nasal Cannula 3 09/11/25 11:35 Room Air, Nasal Cannula 4 09/11/25 11:14 09/11/25 09:43 Nasal Cannula 4 09/11/25 07:52 Nasal Cannula 5 09/11/25 07:30 Nasal Cannula 5 Laboratory Results 09/11/25 09/11/25 09/11/25 16:15 14:13 11:32 WBC RBC Hgb POC Hgb Hct POC Hct MCV MCH MCHC RDW Std Deviation RDW Coeff of Josiah Plt Count MPV Immature Gran % (Auto) Neut % (Auto) Lymph % (Auto) S[place]ent % (Auto) Eos % (Auto) Baso % (Auto) Neut # (Auto) Lymph # (Auto) [place] # (Auto) Eos # (Auto) Baso # (Auto) Immature Gran # (Auto) ESR Specimen Type Sample Site POC pH POC pCO2 POC pO2 POC HCO3 POC Total CO2 POC Base Excess O2 Sat Pulse Oximetry ABG pH (Temp Correct) ABG pCO2 (Temp Corrct POC ABG pO2 at Pt Temp POC ABG O2 Sat Smith Test VBG pH VBG pCO2 VBG pO2 VBG HCO3 VBG O2 Saturation VBG Base Excess O2 Delivery Device POC Sodium Sodium POC Potassium Potassium Chloride Carbon Dioxide Anion Gap BUN Creatinine Est Cr Clr Drug Dosing eGFR BUN/Creatinine Ratio Glucose POC Glucose 187 H 214 H Estimat Average Glucose Hemoglobin A1c Calcium Total Creatine Kinase 51 Troponin I High Sens C-Reactive Protein 1.16 H B-Natriuretic Peptide Triglycerides Cholesterol LDL Cholesterol, Calc VLDL Cholesterol, Calc HDL Cholesterol Cholesterol/HDL Ratio 09/11/25 09/11/25 09/11/25 08:04 08:00 07:38 WBC RBC Hgb POC Hgb Hct POC Hct MCV MCH MCHC RDW Std Deviation RDW Coeff of Josiah Plt Count MPV Immature Gran % (Auto) Neut % (Auto) Lymph % (Auto) [place] % (Auto) Eos % (Auto) Baso % (Auto) Neut # (Auto) Lymph # (Auto) [place]ent # (Auto) Eos # (Auto) Baso # (Auto) Immature Gran # (Auto) ESR 30 H Specimen Type Sample Site POC pH POC pCO2 POC pO2 POC HCO3 POC Total CO2 POC Base Excess O2 Sat Pulse Oximetry ABG pH (Temp Correct) ABG pCO2 (Temp Corrct POC ABG pO2 at Pt Temp POC ABG O2 Sat Smith Test VBG pH 7.31 L VBG pCO2 77 H VBG pO2 44 VBG HCO3 39 VBG O2 Saturation 73.5 VBG Base Excess 9.4 O2 Delivery Device POC Sodium Sodium POC Potassium Potassium 5.0 Chloride Carbon Dioxide Anion Gap BUN Creatinine Est Cr Clr Drug Dosing eGFR BUN/Creatinine Ratio Glucose POC Glucose 161 H Estimat Average Glucose Hemoglobin A1c Calcium Total Creatine Kinase Troponin I High Sens C-Reactive Protein B-Natriuretic Peptide Triglycerides Cholesterol LDL Cholesterol, Calc VLDL Cholesterol, Calc HDL Cholesterol Cholesterol/HDL Ratio 09/11/25 09/10/25 09/10/25 05:39 20:48 20:37 WBC 9.43 RBC 4.75 Hgb 14.7 POC Hgb Hct 45.6 POC Hct MCV 96.0 MCH 30.9 MCHC 32.2 RDW Std Deviation 49.4 H RDW Coeff of Josiah 14.5 Plt Count 273 MPV 9.5 Immature Gran % (Auto) 0.3 Neut % (Auto) 86.2 Lymph % (Auto) 7.5 Sargent % (Auto) 5.9 Eos % (Auto) 0.0 Baso % (Auto) 0.1 Neut # (Auto) 8.12 H Lymph # (Auto) 0.71 L S[place]ent # (Auto) 0.56 Eos # (Auto) 0.00 Baso # (Auto) 0.01 Immature Gran # (Auto) 0.03 ESR Specimen Type Sample Site POC pH POC pCO2 POC pO2 POC HCO3 POC Total CO2 POC Base Excess O2 Sat Pulse Oximetry ABG pH (Temp Correct) ABG pCO2 (Temp Corrct POC ABG pO2 at Pt Temp POC ABG O2 Sat Smith Test VBG pH 7.32 L VBG pCO2 61 H VBG pO2 71 VBG HCO3 31 VBG O2 Saturation 94.0 VBG Base Excess 3.6 O2 Delivery Device POC Sodium Sodium 138 POC Potassium Potassium 5.4 H Chloride 99 Carbon Dioxide 33 H Anion Gap 6 BUN 15 Creatinine 0.72 Est Cr Clr Drug Dosing 105.6 eGFR 104.59 BUN/Creatinine Ratio 20.8 H Glucose 198 H POC Glucose 258 H Estimat Average Glucose 197 Hemoglobin A1c 8.5 H Calcium 9.5 Total Creatine Kinase Troponin I High Sens C-Reactive Protein B-Natriuretic Peptide Triglycerides 82 Cholesterol 96 LDL Cholesterol, Calc 45 VLDL Cholesterol, Calc 16 HDL Cholesterol 35 Cholesterol/HDL Ratio 2.7 09/10/25 09/10/25 20:18 14:45 WBC RBC Hgb POC Hgb 15.6 Hct POC Hct 46 MCV MCH MCHC RDW Std Deviation RDW Coeff of Josiah Plt Count MPV Immature Gran % (Auto) Neut % (Auto) Lymph % (Auto) [place] % (Auto) Eos % (Auto) Baso % (Auto) Neut # (Auto) Lymph # (Auto) [place]ent # (Auto) Eos # (Auto) Baso # (Auto) Immature Gran # (Auto) ESR Specimen Type Arterial Sample Site R Radial POC pH 7.28 L POC pCO2 67 H POC pO2 72 L POC HCO3 31 H POC Total CO2 33 H POC Base Excess 4.0 H O2 Sat Pulse Oximetry 95 ABG pH (Temp Correct) 7.276 L ABG pCO2 (Temp Corrct 67 H POC ABG pO2 at Pt Temp 73 POC ABG O2 Sat 91.0 Smith Test Pass VBG pH VBG pCO2 VBG pO2 VBG HCO3 VBG O2 Saturation VBG Base Excess O2 Delivery Device Cannula POC Sodium 139 Sodium POC Potassium 4.6 Potassium Chloride Carbon Dioxide Anion Gap BUN Creatinine Est Cr Clr Drug Dosing eGFR BUN/Creatinine Ratio Glucose POC Glucose Estimat Average Glucose Hemoglobin A1c Calcium Total Creatine Kinase Troponin I High Sens 4.9 C-Reactive Protein B-Natriuretic Peptide 29 Triglycerides Cholesterol LDL Cholesterol, Calc VLDL Cholesterol, Calc HDL Cholesterol Cholesterol/HDL Ratio Diagnostic Findings Chest CTA 09/10/25 17:05 CT pulmonary angiogram with IV contrast History: Chest pain COMPARISON: None TECHNIQUE: CT angiography of the chest was performed without IV contrast followed by IV contrast, including 3D post processing CTA image reconstruction. Dose reduction techniques were achieved by using automatic exposure control and/or adjustment of mA and/or kV according to patient size and/or use of iterative reconstruction technique. FINDINGS: Diagnostic quality: Adequate There is no evidence for pulmonary embolism. The heart is not enlarged. There is no pericardial effusion. There are no abnormally enlarged hilar or mediastinal lymph nodes. Calcified subcarinal and right hilar lymph nodes due to old granulomatous disease. Heavy coronary calcifications. The central tracheobronchial tree is clear. The lungs are clear. There is no pleural effusion. Mild streaky bibasilar atelectasis. The lungs appear emphysematous. Limited visualized upper abdomen. No destructive osseous changes are seen. IMPRESSION: No evidence for pulmonary embolism. Electronically signed by Jose Patino 09-10-2025 5:49 PM Medications Administered Home Medications Medication Instructions Recorded Confirmed Last Taken albuterol sulfate 90 mcg/actuation 2 puff inhalation .Q4-6H PRN 09/10/25 09/10/25 Unknown aerosol inhaler Wheezing atorvastatin 40 mg tablet 40 mg PO DAILY 09/10/25 09/10/25 Unknown metformin 750 mg tablet,extended 750 mg PO BID 09/10/25 09/10/25 Unknown release 24 hr Active Medications Generic Name Dose Route Start Last Admin Trade Name Freq PRN Reason Stop Dose Admin Aspirin 81 mg 09/10/25 20:36 09/11/25 09:09 Aspirin 81 Mg Ectab PO 10/10/25 20:35 81 mg QAM KENNEY Administration Atorvastatin Calcium 40 mg 09/11/25 09:00 09/11/25 09:09 Atorvastatin 40 Mg Tab PO 10/11/25 08:59 40 mg DAILY KENNEY Administration Azithromycin 500 mg 09/11/25 09:00 09/11/25 09:09 Azithromycin 250 Mg Tab PO 09/16/25 08:59 500 mg QAM KENNEY Administration Enoxaparin Sodium 40 mg 09/11/25 09:00 09/11/25 09:08 Enoxaparin Inj 40 Mg/0.4 Ml Syr SQ 10/11/25 08:59 40 mg QAM KENNEY Administration Fluticasone/Vilanterol 1 puffs 09/11/25 09:00 09/11/25 10:43 Fluticasone/Vilanterol 100/25mcg 14 Puffs/Inhaler INH 10/11/25 08:59 1 puffs DAILY KENNEY Administration Guaifenesin 600 mg 09/10/25 21:00 09/11/25 10:44 Guaifenesin 600 Mg Tabcr PO 10/10/25 20:59 600 mg Q12 KENNEY Administration Insulin Aspart 0 units 09/10/25 21:00 09/11/25 11:57 Insulin Aspart Per Unit Charge SC 10/10/25 20:59 8 units ACHS KENNEY Administration PG Care Time/CCT Total # of Minutes Spent Total Time Spent with Patient: Total time spent is greater than 50% in coordination of care (as documented) at patient's floor/unit and/or counseling patient: 65 minutes Coding Level of Care Code 37539 IN/OBS CONSULT LVL 4,60M Diagnoses Dyspnea on exertion R06.09 Acute hypoxemic respiratory failure J96.01 Chronic hypercapnic respiratory failure J96.12 Enlarged pulmonary artery I28.[address] R93.89 Observed sleep apnea G47.30 Time Spent (min) 65
--- NOTE | 2025-09-11 18:09 | XCELERA ---
[id number] \\[email or web address]\[id number]
[2025-09-11] MEDS: FORMOTEROL 20 MCG/2 ML VIAL NEB SCH (19:53)
[2025-09-11] MEDS: BUDESONIDE 0.5 MG/2 ML VIAL (PULMICORT) NEB SCH (19:53)
[2025-09-12 07:44] LABS: Hematocrit (blood only) 46.1 % (42.0-52.0); Hemoglobin 14.7 g/dL (14.0-18.0); Mean Corpuscular Hemoglobin 31.3 pg (25.0-34.0); Mean Corpuscular Volume 98.1 fL (80.0-100.0); Platelet Count 283 K/uL (130-400); RDW Standard Deviation 52.0 fL (36.4-46.3); Red Blood Count 4.70 M/uL (4.70-6.10); White Blood Count 11.71 K/ul (4.8-10.8)
[2025-09-12 08:03] LABS: Anion Gap 6.0 (3-11); Blood Urea Nitrogen 18.0 mg/dl (6-23); Calcium 9.8 mg/dl (8.6-10.3); Carbon Dioxide 40.0 mmol/L (21-32); Chloride 94.0 mmol/L (98-107); Creatinine Clr Calc Pharmacy 95.0 ml/min; Glucose 145.0 mg/dl (70-99(Fasting)); Magnesium 1.9 mg/dl (1.7-2.4); Potassium 4.6 mmol/L (3.5-5.1); Sodium 140.0 mmol/L (136-145)
--- NOTE | 2025-09-12 13:35 | Hospitalist Progress Note ---
Date of Service September 12, 2025 Assessment & Plan (1) Observed sleep apnea: (2) Chronic hypercapnic respiratory failure: (3) Acute hypoxic on chronic hypercapnic respiratory failure: (4) Former tobacco use: (5) Type 2 diabetes mellitus: (6) COPD with emphysema: (7) Coronary artery calcification seen on CAT scan: (8) Dyslipidemia: (9) Nocturnal hypoxia: Plan Patient 60-year-old gentleman with acute hypoxic respiratory failure in the setting of chronic hypercapnic respiratory failure. Two-step oxygen testing reveals significant oxygen requirements 3 L at rest and 6 L with activity. Patient's condition probably multifactorial, history of smoking, history of occupational exposure, history of asthma, suspected sleep apnea, nocturnal hypoxia, patient now becoming more symptomatic as these chronic issues accumulate and progress. Communication with pulmonary. Do not expect patient's oxygen requirements to rapidly improve over the next 24 to 48 hours. They are recommending patient be evaluated for right sided heart catheterization. Consult cardiology, evaluate for right heart cath, in the setting of significant coronary artery calcifications may benefit from left-sided heart cath as well. Communication with the patient's significant other via phone and bedside and updated plan of care Continue to monitor glucose and cover with insulin Continue to observe off of steroids Continue inhalers Case management coordinating home oxygen Follow-up pending laboratory studies with pulmonary in outpatient setting when available. Admission and Anticipated Discharge Date Admission Date: September 10, 2025 Subjective Patient overall is feeling better. Less short of breath with activity but still dependent on oxygen. Physical Exam Physical Exam: Constitutional: Alert, no acute distress, nontoxic HEENT: Mucous membranes moist. Lungs: Decreased breath sounds, poor airflow, few expiratory wheezes CV: S1-S2, regular Abdomen: Soft, nontender, nondistended Extremities: No significant edema Neuro: No focal deficits Psych: Cooperative, normal mood Results & Data Results & Data Vital Signs (Past 12 Hours) Vital Signs Temp Pulse Pulse Pulse Pulse Pulse Pulse 09/12/25 11:30 36.8 C 81 09/12/25 09:43 66 60 70 66 09/12/25 07:56 36.6 C 60 09/12/25 07:45 09/12/25 07:37 37.5 C 57 L 09/12/25 07:07 58 L 09/12/25 07:00 53 L 09/12/25 02:40 36.7 C 56 L 09/12/25 02:13 Pulse Pulse Resp Resp Resp Resp Resp 09/12/25 11:30 18 09/12/25 09:43 61 65 20 16 20 20 09/12/25 07:56 20 09/12/25 07:45 09/12/25 07:37 20 09/12/25 07:07 16 09/12/25 07:00 09/12/25 02:40 18 09/12/25 02:13 68 Resp Resp BP BP Pulse Ox Pulse Ox Pulse Ox 09/12/25 11:30 127/72 90 09/12/25 09:43 16 16 83 L 91 09/12/25 07:56 101/48 L 100 09/12/25 07:45 09/12/25 07:37 111/67 98 09/12/25 07:07 90 09/12/25 07:00 09/12/25 02:40 135/77 89 L 09/12/25 02:13 Pulse Ox Pulse Ox Pulse Ox Pulse Ox O2 Del Method O2 Del Method O2 Flow Rate 09/12/25 11:30 Nasal Cannula 4 09/12/25 09:43 85 L 90 87 L 83 L 09/12/25 07:56 Room Air 09/12/25 07:45 Nasal Cannula 3 09/12/25 07:37 Nasal Cannula 2 09/12/25 07:07 Nasal Cannula 2 09/12/25 07:00 09/12/25 02:40 Nasal Cannula 2 09/12/25 02:13 97 Nasal Cannula O2 Flow Rate O2 Flow Rate O2 Flow Rate O2 Flow Rate O2 Flow Rate O2 Flow Rate 09/12/25 11:30 09/12/25 09:43 3 3 4 6 2 09/12/25 07:56 09/12/25 07:45 09/12/25 07:37 09/12/25 07:07 09/12/25 07:00 09/12/25 02:40 09/12/25 02:13 2 Diagnostic Findings Reviewed imaging, laboratory and diagnostic studies. Pertinent findings as below. 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
--- NOTE | 2025-09-12 15:54 | Cardiology Consultation ---
Date of Consultation September 12, 2025 Assessment & Plan (1) Acute hypoxic on chronic hypercapnic respiratory failure: (2) COPD with emphysema: (3) Nocturnal hypoxia: (4) Dyspnea on exertion: (5) Observed sleep apnea: Plan Patient admitted with acute respiratory failure with hypoxia. Etiology uncertain. Possible obesity hypoventilatory syndrome with underlying COPD and untreated sleep apnea. Cardiology consulted to consider right heart cath in the future. -Echo during admission with preserved LVEF, normal LV and RV size and function. No pulm hypertension noted. -Will repeat limited echo with bubble study to rule out shunt contributing to hypoxia. To be done tomorrow. -In the meantime, would continue to treat for possible pneumonia. -Arrange supplemental O2 and treat ZAMZAM. -Would consider future heart cath as an outpatient if hypoxia does not improve, or etiology remains uncertain. Coronary artery calcifications -HS troponin was negative on admission -No chest pain to suggest angina -Recommend ASA and atorvastatin Case discussed with Dr. Zhou I spent a total of 50 minutes on the date of service in preparation, delivery, and documentation of the care provided to this patient, excluding any time spent in the performance of separately billed services. Alissa Sanchez PA-C Department of Cardiology, [facility] This chart was completed in part utilizing Speech Voice Recognition Software. Grammatical errors, random word insertions, pronoun errors, and incomplete sentences are an occasional consequence of this system due to software limitations, ambient noise, and hardware issues. Any formal questions or concerns about the content, text, or information contained within the body of this dictation should be directly addressed to the provider for clarification. Supervising Physician Co-Signing Physician Notes I have personally performed a history and physical examination on the patient. I have reviewed the advance practitioner's documentation, and I agree with, and take responsibility for the plan of care. 60-year-old male admitted with acute hypoxic and hypercapnic respiratory failure. Likely multifactorial with history of heavy tobacco use and probable underlying emphysema, possible interstitial lung disease, bronchiolitis, possible component of obesity hypoventilation syndrome and obstructive sleep apnea. Interstitial changes noted at the lung bases per CT which may require lung block biopsy/bronchoscopy. Cardiology consultation requested to consider evaluation of pulmonary pressures, right heart catheterization. Personal review of resting 2D transthoracic echocardiogram demonstrates trivial tricuspid regurgitation without evidence of pulmonary hypertension. Normal cardiac chamber size and function. No significant valvular pathology. CT demonstrating coronary calcifications which will require ischemic evaluation as an outpatient. Recommend repeat limited resting 2D transthoracic echocardiogram in a.m. with injection of agitated saline contrast to rule out shunting. Ultrasound contrast also may be used with reinterrogation of tricuspid valve regurgitation for estimation of pulmonary pressures. Right heart catheterization will be considered in the future pending initial pulmonary evaluation and repeat echocardiogram. Thank you for allow me to participate in the care of your patient. Tho Zhou DO, [facility] I spent a total of 35 minutes on the date of service in preparation, delivery, and documentation of the care provided to this patient, excluding any time spent in the performance of separately billed services. History of Present Illness Reason for Consultation: Shortness of breath Requesting Physician: Arturo Sommer Attending Physician: Dr. Zhou History of Present Illness Patient is a 60 year old male admitted with progressive dyspnea, hypoxia x1 month. Hypoxic on arrival. chest CTA revealed no PE. No pleural effusions. Emphysema of the lungs noted. Started on supplemental O2. Started on antibiotics for possible pneumonia. Pulm consulted. He likely has untreated ZAMZAM. Still requiring 3 L via NC. No prior cardiac history. On admission, HS troponin negative. EKG demonstrating NSR, short MD interval. No prior available for comparison. Echo demonstrating normal LV and RV size and function, no significant valvular disease. No pulm hypertension noted. He reports he was in usual state of health until about 1 month ago when he began to have worsening SOB with exertion, then at rest. No exertional chest pain. No orthopnea, PND or edema. No dizziness or lightheadedness. No palpitations. History includes: 1. Prior heavy tobacco abuse, quitting 10 years ago 2. dyslipidemia 3. DM Allergies Allergy/AdvReac Type Severity Reaction Status Date / Time No Known Allergies Allergy Verified 09/10/25 16:18 Home Medications Medication Instructions Recorded Confirmed Type albuterol sulfate 90 mcg/actuation 2 puff inhalation .Q4-6H PRN 09/10/25 09/10/25 History aerosol inhaler Wheezing atorvastatin 40 mg tablet 40 mg PO DAILY 09/10/25 09/10/25 History metformin 750 mg tablet,extended 750 mg PO BID 09/10/25 09/10/25 History release 24 hr Patient History Medical History (Updated 09/12/25 @ 13:32 by Soren Aguilar DO) Former tobacco use Asthma Type 2 diabetes mellitus Dyslipidemia Social History (Updated 09/10/25 @ 17:37 by Jennifer Connelly PA-C) Smoking Status: Former smoker Tobacco Type: Smokeless Tobacco (Dip or Chew) Do You Dip or Chew Tobacco: Yes; Tobacco Cessation Education Requested by Patient: No Hx Alcohol Use: No Hx Substance Use: No Preferred Language: Tongan Communication Ability: Effective Cafe Aide Required: No Beliefs That Will Affect Care: None Current Living Situation: Alone and Significant Other current occupational status: employed 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 Feels Safe at Home: Yes Safety Concerns: Feels Safe At This Time Assistive Devices: None Review of Systems Review of Systems: All systems reviewed & are unremarkable except as noted in HPI & below Physical Exam Constitutional: WD/WN, vitals as above + obese; no acute distress Neck: + thick neck Respiratory: no respiratory distress Auscultation: + diminished lung sounds; no crackles and no rales Cardiovascular: Rate/Rhythm: regular rate and regular rhythm Heart Sounds: normal S1 and normal S2; no murmur Vessels: no JVD Extremities: no edema Gastrointestinal (Abdomen): normal bowel sounds, soft, nontender, no hepatosplenomegaly Musculoskeletal: no cyanosis or clubbing, extremities motor strength 5/5 Results & Data Vital Signs (Past 12 Hours) Vital Signs Temp Pulse Pulse Pulse Pulse Pulse Pulse 09/12/25 14:00 69 09/12/25 11:30 36.8 C 81 09/12/25 09:43 66 60 70 66 09/12/25 07:56 36.6 C 60 09/12/25 07:45 09/12/25 07:37 37.5 C 57 L 09/12/25 07:07 58 L 09/12/25 07:00 53 L Pulse Pulse Resp Resp Resp Resp Resp 09/12/25 14:00 09/12/25 11:30 18 09/12/25 09:43 61 65 20 16 20 20 09/12/25 07:56 20 09/12/25 07:45 09/12/25 07:37 20 09/12/25 07:07 16 09/12/25 07:00 Resp Resp BP BP Pulse Ox Pulse Ox Pulse Ox 09/12/25 14:00 09/12/25 11:30 127/72 90 09/12/25 09:43 16 16 83 L 91 09/12/25 07:56 101/48 L 100 09/12/25 07:45 09/12/25 07:37 111/67 98 09/12/25 07:07 90 09/12/25 07:00 Pulse Ox Pulse Ox Pulse Ox Pulse Ox O2 Del Method O2 Flow Rate O2 Flow Rate 09/12/25 14:00 09/12/25 11:30 Nasal Cannula 4 09/12/25 09:43 85 L 90 87 L 83 L 3 09/12/25 07:56 Room Air 09/12/25 07:45 Nasal Cannula 3 09/12/25 07:37 Nasal Cannula 2 09/12/25 07:07 Nasal Cannula 2 09/12/25 07:00 O2 Flow Rate O2 Flow Rate O2 Flow Rate O2 Flow Rate 09/12/25 14:00 09/12/25 11:30 09/12/25 09:43 3 4 6 2 09/12/25 07:56 09/12/25 07:45 09/12/25 07:37 09/12/25 07:07 09/12/25 07:00 Laboratory Results CBC 09/12/25 Range/Units 07:02 WBC 11.71 H (4.8-10.8) K/ul RBC 4.70 (4.70-6.10) M/uL Hgb 14.7 (14.0-18.0) g/dL Hct 46.1 (42.0-52.0) % Plt Count 283 (130-400) K/uL Comprehensive Metabolic Panel 09/12/25 Range/Units 07:02 Sodium 140 (136-145) mmol/L Potassium 4.6 (3.5-5.1) mmol/L Chloride 94 L (98-107) mmol/L Carbon Dioxide 40 H (21-32) mmol/L BUN 18 (6-23) mg/dl Creatinine 0.80 (0.6-1.4) mg/dl Glucose 145 H (70-99(Fasting)) mg/dl Calcium 9.8 (8.6-10.3) mg/dl Intake and Output 09/12/25 09/12/25 09/12/25 06:59 14:59 22:59 Intake Total 250 / 1330 Output Total 700 / 700 Balance 250 / 1329 -700 / -700 Intake: Oral 250 / 1330 Output: Urine 700 / 700 Other: # Unmeasured Voids 2 Weight 78.8 kg Weight Measurement Method Built in [facility] Diagnostic Findings Telemetry reviewed: Sinus bradycardia in the 50's. (asymptomatic). No pauses or arrhythmias EKG reviewed form admission: NSR with short MD No prior for comparison Chest CTA on admission reviewed: Diagnostic quality: Adequate There is no evidence for pulmonary embolism. The heart is not enlarged. There is no pericardial effusion. There are no abnormally enlarged hilar or mediastinal lymph nodes. Calcified subcarinal and right hilar lymph nodes due to old granulomatous disease. Heavy coronary calcifications. The central tracheobronchial tree is clear. The lungs are clear. There is no pleural effusion. Mild streaky bibasilar atelectasis. The lungs appear emphysematous. Limited visualized upper abdomen. No destructive osseous changes are seen. IMPRESSION: No evidence for pulmonary embolism. Medications Administered Current Inpatient Medications Acetaminophen (Acetaminophen 325 Mg Tab) 650 mg PO Q4H PRN PRN Reason: Pain or Fever Stop: 10/10/25 20:35 Albuterol (Albut/Ipratrop 3mg/0.5mg Neb 3 Ml Vial) 3 ml NEB QIDR PRN; Protocol PRN Reason: Wheezing Stop: 10/10/25 18:59 Aspirin (Aspirin 81 Mg Ectab) 81 mg PO QAM KENNEY Stop: 10/10/25 20:35 Last Admin: 09/12/25 09:02 Dose: 81 mg Atorvastatin Calcium (Atorvastatin 40 Mg Tab) 40 mg PO DAILY KENNEY Stop: 10/11/25 08:59 Last Admin: 09/12/25 09:03 Dose: 40 mg Azithromycin (Azithromycin 250 Mg Tab) 500 mg PO QAM KENNEY Stop: 09/16/25 08:59 Last Admin: 09/12/25 09:02 Dose: 500 mg Budesonide (Budesonide 0.5 Mg/2 Ml Vial (Pulmicort)) 0.5 mg NEB BIDR KENNEY Stop: 10/11/25 18:59 Last Admin: 09/12/25 07:05 Dose: 0.5 mg Dextrose (Dextrose 50% 50 Ml Syringe) 25 - 50 ml IV UD PRN; Protocol PRN Reason: Hypoglycemia Protocol Stop: 10/10/25 20:35 Enoxaparin Sodium (Enoxaparin Inj 40 Mg/0.4 Ml Syr) 40 mg SQ QAM KENNEY Stop: 10/11/25 08:59 Last Admin: 09/12/25 09:02 Dose: 40 mg Fluticasone/Vilanterol (Fluticasone/Vilanterol 100/25mcg 14 Puffs/Inhaler) 1 puffs INH DAILY KENNEY Stop: 10/11/25 08:59 Last Admin: 09/12/25 09:02 Dose: 1 puffs Formoterol Fumarate (Formoterol 20 Mcg/2 Ml Vial) 20 mcg NEB BIDR KENNEY Stop: 10/11/25 18:59 Last Admin: 09/12/25 07:06 Dose: 20 mcg Glucagon (Glucagon For Inj 1 Mg Vial) 1 mg SQ UD PRN; Protocol PRN Reason: Hypoglycemia Protocol Stop: 10/10/25 20:35 Glucose (Glucose 40% Gel 15 Gm Tube) 15 - 30 gm PO UD PRN; Protocol PRN Reason: Hypoglycemia Protocol Stop: 10/10/25 20:35 Glucose (Glucose 10 Tab/Tube) 4 - 8 tab PO UD PRN; Protocol PRN Reason: Hypoglycemia Protocol Stop: 10/10/25 20:35 Guaifenesin (Guaifenesin 600 Mg Tabcr) 600 mg PO Q12 KENNEY Stop: 10/10/25 20:59 Last Admin: 09/12/25 09:02 Dose: 600 mg Insulin Aspart (Insulin Aspart Per Unit Charge) 0 units SC ACHS KENNEY Stop: 10/10/25 20:59 Last Admin: 09/12/25 11:51 Dose: 10 units Miscellaneous (Carbohydrates For Hypoglycemia ) 15 - 30 gm PO UD PRN PRN Reason: Hypoglycemia Protocol Stop: 10/10/25 20:35 PG Care Time/CCT Total # of Minutes Spent Total Time Spent with Patient: Total time spent is greater than 50% in coordination of care (as documented) at patient's floor/unit and/or counseling patient: 50 minutes Coding Level of Care Code 87168 INT INP/OBS CARE 3/75MIN Diagnoses Acute hypoxic on chronic hypercapnic respiratory failure J96.01; J96.12 COPD with emphysema J43.9 Nocturnal hypoxia G47.34 Dyspnea on exertion R06.09 Observed sleep apnea G47.30
--- NOTE | 2025-09-13 10:19 | Pulmonology Progress Note ---
Date of Service September 13, 2025 Assessment & Plan (1) Dyspnea on exertion: Plan: * Probably multifactorial * Suspect element of Pulmonary Hypertension from large PA on CTA. Not confirmed by Echo, but will require RHC to confirm or rule out * Possible interstitial lung disease * Possible contribution from previous smoking, but less likely * Continue current bronchodilators and inhaled steroids, at least until PFTs become available * Needs PFTs and follow-up with Pulmonary (2) Acute hypoxemic respiratory failure: Plan: * Chronicity of hypoxemia is uncertain, but no previous history of need for supplemental Oxygen. * Possible interstitial lung disease, though acute bronchiolitis cannot be ruled out. * Requiring Oxygen at 3 L/min at rest and 6 L/min during ambulation. Home Oxygen being arranged. (3) Chronic hypercapnic respiratory failure: Plan: * Probably multifactorial * Possible component of Obesity-Hypoventilation. * Cannot rule out contribution from untreated (suspected) sleep apnea * Will need Sleep Study. If negative for ZAMZAM, then consideration would be given for qualifying patient for NIV based on hypoventilation. (4) Enlarged pulmonary artery: Plan: * Suggestive of Pulmonary Hypertension * Can be multifactorial, including Obesity-hypoventilation * Can also be associated with etiology of (suspected) interstitial lung disease * Echo and bubble study were not consistent with elevated RVSP (5) Abnormal chest CT: Plan: * Interstitial change at the bases, bilaterally * Cannot rule out bronchiolitis, but unlikely (mostly wishful thinking) * Concern about association with exposure to [place]-dust, as well as animal products * Will run lab studies for etiologies of ILD, including Hypersensitivity Pneumonitis * May require lung biopsy, though difficult to be certain that this will make a difference in terms of treatment * Finish course of antibiotics * Would stop systemic steroids for the time being. Can be restarted if needed. (6) Left to right cardiovascular shunt: Plan: * Possible contribution to hypoxemia * Small/mild extracardiac [id number] shunt suspected on contrast-enhanced Echo (delayed appearance in Left Atrium) * No suggestion of PAVMs on chest CTA: will review study with Radiology. 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 He reported progressively worsening dyspnea over the preceding 5 to 6 days, with exertional symptoms, increased wheezingespecially at nightand a chronic productive cough with green sputum. He denied chest pain, abdominal pain, nausea, vomiting, diarrhea, fever, chills, night sweats, unexplained weight loss, or recent surgeries. He also denied any recent hospitalizations, history of heart disease, DVT, PE, or recent prolonged travel. 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 On arrival, he was found to be significantly hypoxic, with oxygen saturation as low as 70% on room air. He was started on supplemental oxygen via nasal cannula, and received IV magnesium, IV methylprednisolone, DuoNeb treatments, IV ceftriaxone, and oral azithromycin. His initial laboratory evaluation revealed a normal white blood cell count, hemoglobin, and platelets, with unremarkable kidney function. VBG demonstrated a pH of 7.30 and a pCO2 of 70. Chest x-ray did not show obvious infiltrates, and ECG showed normal sinus rhythm. CT chest revealed heavy coronary calcifications but no evidence of filling-defects in the pulmonary arteries. There were also minor emphysematous changes on the chest CTA, however, there was interstitial thickening at both bases, suspicious for possible acute bronchiolitic changes, but there are no previous studies for comparison. The pulmonary artery was also enlarged at around 35 mm diameter as well as backup of contrast into the hepatic veins, suggestive of pulmonary hypertension and increased pressure in the central venous system, respectively. His past medical history included asthma, dyslipidemia, and type 2 DM. Note from 09/11/2025: The patient reports feeling some better today, but continues with dyspnea on mild exertion. He denies significant cough. He denies previous knowledge of any leg swelling. I reviewed the imaging studies. CT chest revealed heavy coronary calcifications but no evidence of filling-defects in the pulmonary arteries. There were also minor emphysematous changes on the chest CTA, however, there was interstitial thickening at both bases, though acute bronchiolitic changes cannot be ruled out, and there are no previous studies for comparison. The pulmonary artery was also enlarged at around 35 mm diameter as well as backup of contrast into the hepatic veins, suggestive of pulmonary hypertension and increased pressure in the central venous system, respectively. The patient reports significant exposure to all sorts of animal related dusts, in addition to [place]dust. His describes significant abnormalities in his breathing pattern during sleep, and she gets scared about his breathing interruption during sleep. Note from 09/13/2025: Patient denies dyspnea at rest, but has not been exerting himself much while hospitalized. Arrangements being made for home Oxygen. Patient will need 3 L/min at rest and 6 L/min during exertion. Bubble study with small amount of contrast crossing to the left atrium, consistent with small/mild extracardiac [id number] shunt. I reviewed the chest CTA again, and I do not think that there are abnormalities on it that resemble Pulmonary Arteriovenous Malformations (PAVMs). I will review the study again with Radiology. Review of Systems Review of Systems: All systems reviewed & are unremarkable except as noted in HPI & below Physical Exam Physical Exam: General: In no acute distress, using Oxygenvia nasal cannula. Obese. Skin: Warm and dry to touch. Noobvious lesions. No suggestion of spider- angimoata. Respiratory: Diffusely decreased breath sounds, no wheezing; fine bilateral basal crackles. No use of accessory muscles and no prolonged exhalation. Cardiac: Distant sounds, regular rhythm, no murmurs, no gallops, no rubs; could not appreciate JV pulse elevation. GI: Soft, nontender. Extremities No cyanosis,trace-1+ edema. Neuro: No gross motor deficits. Seems appropriate. No facial-droop. Speech is clear. Results & Data Results & Data Vital Signs (Past 12 Hours) Vital Signs Temp Pulse Pulse Resp BP BP Pulse Ox 09/13/25 08:44 09/13/25 08:31 37.0 C 66 18 122/77 91 09/13/25 07:36 52 L 09/13/25 07:15 57 L 16 89 L 09/13/25 04:19 36.5 C 57 L 18 130/74 93 09/12/25 22:47 36.9 C 57 L 18 117/72 94 O2 Del Method O2 Flow Rate 09/13/25 08:44 Nasal Cannula 3 09/13/25 08:31 Nasal Cannula 3 09/13/25 07:36 09/13/25 07:15 Nasal Cannula 2 09/13/25 04:19 Nasal Cannula 3 09/12/25 22:47 Nasal Cannula 3 Laboratory Results 09/13/25 09/12/25 09/12/25 07:09 20:09 15:55 POC Glucose 139 H 170 H 119 H 09/12/25 11:11 POC Glucose 199 H Medications Administered Home Medications Medication Instructions Recorded Confirmed Last Taken albuterol sulfate 90 mcg/actuation 2 puff inhalation .Q4-6H PRN 09/10/25 09/10/25 Unknown aerosol inhaler Wheezing atorvastatin 40 mg tablet 40 mg PO DAILY 09/10/25 09/10/25 Unknown metformin 750 mg tablet,extended 750 mg PO BID 09/10/25 09/10/25 Unknown release 24 hr Active Medications Generic Name Dose Route Start Last Admin Trade Name Freq PRN Reason Stop Dose Admin Aspirin 81 mg 09/10/25 20:36 09/13/25 07:50 Aspirin 81 Mg Ectab PO 10/10/25 20:35 81 mg QAM KENNEY Administration Atorvastatin Calcium 40 mg 09/11/25 09:00 09/13/25 07:49 Atorvastatin 40 Mg Tab PO 10/11/25 08:59 40 mg DAILY KENNEY Administration Azithromycin 500 mg 09/11/25 09:00 09/13/25 07:49 Azithromycin 250 Mg Tab PO 09/16/25 08:59 500 mg QAM KENNEY Administration Budesonide 0.5 mg 09/11/25 19:00 09/13/25 07:14 Budesonide 0.5 Mg/2 Ml Vial (Pulmicort) NEB 10/11/25 18:59 0.5 mg BIDR KENNEY Administration Enoxaparin Sodium 40 mg 09/11/25 09:00 09/13/25 07:48 Enoxaparin Inj 40 Mg/0.4 Ml Syr SQ 10/11/25 08:59 40 mg QAM KENNEY Administration Fluticasone/Vilanterol 1 puffs 09/11/25 09:00 09/13/25 07:50 Fluticasone/Vilanterol 100/25mcg 14 Puffs/Inhaler INH 10/11/25 08:59 1 puffs DAILY KENNEY Administration Formoterol Fumarate 20 mcg 09/11/25 19:00 09/13/25 07:14 Formoterol 20 Mcg/2 Ml Vial NEB 10/11/25 18:59 20 mcg BIDR KENNEY Administration Guaifenesin 600 mg 09/10/25 21:00 09/13/25 07:50 Guaifenesin 600 Mg Tabcr PO 10/10/25 20:59 600 mg Q12 KENNEY Administration Insulin Aspart 0 units 09/10/25 21:00 09/13/25 07:47 Insulin Aspart Per Unit Charge SC 10/10/25 20:59 12 units ACHS KENNEY Administration PG Care Time/CCT Total # of Minutes Spent Total Time Spent with Patient: Total time spent is greater than 50% in coordination of care (as documented) at patient's floor/unit and/or counseling patient: 45 minutes Coding Level of Care Code 35193 SUB INP/OBS CARE 2/35MIN Diagnoses Dyspnea on exertion R06.09 Acute hypoxemic respiratory failure J96.01 Chronic hypercapnic respiratory failure J96.12 Enlarged pulmonary artery I28.[address] R93.89 Left to right cardiovascular shunt Q28.8 Observed sleep apnea G47.30 Type 2 diabetes mellitus without complication, without long-term current use of insulin E11.9 Diabetes mellitus complication status: without complication Diabetes mellitus penitentiary insulin use: without regional intermodal truck driver use Time Spent (min) 45
--- NOTE | 2025-09-13 11:06 | Cardiology Progress Note ---
Date of Service September 13, 2025 Assessment & Plan (1) Acute hypoxic on chronic hypercapnic respiratory failure: (2) COPD with emphysema: (3) Nocturnal hypoxia: (4) Dyspnea on exertion: (5) Observed sleep apnea: Plan Patient is a 60 year old male admitted with acute respiratory failure with hypoxia. Etiology uncertain. Possible obesity hypoventilatory syndrome with underlying COPD and untreated sleep apnea. Cardiology consulted to consider right heart cath in the future. acute respiratory failure with hypoxia and hypercapnea. -Echo during admission with preserved LVEF, normal LV and RV size and function. No pulm hypertension noted. -Will repeat limited echo with bubble study to rule out shunt contributing to hypoxia. Results pending -In the meantime, would continue to treat for possible pneumonia. -Arrange supplemental O2 and treat ZAMZAM. -Would consider outpatient future right heart cath Coronary artery calcifications -HS troponin was negative on admission -No chest pain to suggest angina -Recommend ASA and atorvastatin -Consider nuclear lexiscan stress test as an outpatient Case discussed with TONIA ValenciaC Department of Cardiology, [facility] This chart was completed in part utilizing Speech Voice Recognition Software. Grammatical errors, random word insertions, pronoun errors, and incomplete sentences are an occasional consequence of this system due to software limitations, ambient noise, and hardware issues. Any formal questions or concerns about the content, text, or information contained within the body of this dictation should be directly addressed to the provider for clarification. Admission and Anticipated Discharge Date Admission Date: September 10, 2025 Supervising Physician Co-Signing Physician Notes Attending attestation: Case reviewed with the advanced practitioner. I have personally performed a history and physical examination on the patient. I have reviewed the advanced practitioner's documentation on the date of service referenced in note, and I agree with, and take responsibility for the plan of care. Subjective: Patient with ongoing significant oxygen requirement, pulse oximetry 93% on 5 L nasal cannula. He states however he feels well. Telemetry reveals sinus rhythm in the 60s. Exam: Cardiovascular: Regular rhythm, no murmurs No edema Pulmonary: Mildly decreased breath sounds bilaterally at the bases Data: Repeat limited echocardiogram performed today There is no evidence of pulmonary hypertension. Agitated saline contrast was administered to intensify the tricuspid regurgitation signal with findings suggestive of normal right sided pressures. A scant number of bubbles was noted across to the left heart late after contrast administration consistent with a small/mild extracardiac [id number] shunt. The right ventricle is normal in size and function. The left ventricle is normal in size. There is normal left ventricular wall thickness. Left Ventricular Ejection Fraction = 60-65%. Left ventricular systolic function is normal. The left ventricular wall motion is normal. Impression/ Plan: Would not expect the echocardiogram findings of minimal extracardiac [id number] shunt to cause significant hypoxia in the setting of normal right ventricular chamber size and systolic function. Pulmonary input noted and appreciated with noted findings of interstitial changes at the lung bases bilaterally. -Agree with ongoing oxygen supplementation. Patient to complete course of antibiotics. Future considerations include outpatient reassessment for consideration of right heart catheterization for definitive exclusion of pulmonary hypertension and significant shunt. -Patient will likely however also need pulmonary follow-up. Terrence Hung, Subjective Patient resting in chair. Reports feeling "good". Still requiring supplemental O2. No chest pain. No orthopnea, PND or edema. No palpitations Review of Systems Review of Systems: All systems reviewed & are unremarkable except as noted in HPI & below Physical Exam Constitutional: WD/WN, vitals as above + obese; no acute distress Neck: + thick neck Respiratory: no respiratory distress Auscultation: + diminished lung sounds; no crackles and no rales Cardiovascular: Rate/Rhythm: regular rate and regular rhythm Heart Sounds: normal S1 and normal S2; no murmur Vessels: no JVD Extremities: no edema Gastrointestinal (Abdomen): normal bowel sounds, soft, nontender, no hepatospl enomegaly Musculoskeletal: no cyanosis or clubbing, extremities motor strength 5/5 Results & Data Vital Signs (Past 12 Hours) Vital Signs Temp Pulse Pulse Resp BP BP Pulse Ox 09/13/25 08:44 09/13/25 08:31 37.0 C 66 18 122/77 91 09/13/25 07:36 52 L 09/13/25 07:15 57 L 16 89 L 09/13/25 04:19 36.5 C 57 L 18 130/74 93 O2 Del Method O2 Flow Rate 09/13/25 08:44 Nasal Cannula 3 09/13/25 08:31 Nasal Cannula 3 09/13/25 07:36 09/13/25 07:15 Nasal Cannula 2 09/13/25 04:19 Nasal Cannula 3 Laboratory Results Intake and Output 09/12/25 09/13/2509/13/25 22:59 06:59 14:59 Intake Total 240 / 740 Balance 240 / 40 Intake: Oral 240 / 740 Other: Other Intake Source Sips Weight 102.9 kg Weight Measurement Method Standing Scale Diagnostic Findings Telemetry reviewed: Sinus manjit and NSR in the 50-60s Repeat echo with bubble study - report pending Medications Administered Current Inpatient Medications Acetaminophen (Acetaminophen 325 Mg Tab) 650 mg PO Q4H PRN PRN Reason: Pain or Fever Stop: 10/10/25 20:35 Albuterol (Albut/Ipratrop 3mg/0.5mg Neb 3 Ml Vial) 3 ml NEB QIDR PRN; Protocol PRN Reason: Wheezing Stop: 10/10/25 18:59 Aspirin (Aspirin 81 Mg Ectab) 81 mg PO QAM KENNEY Stop: 10/10/25 20:35 Last Admin: 09/13/25 07:50 Dose: 81 mg Atorvastatin Calcium (Atorvastatin 40 Mg Tab) 40 mg PO DAILY KENNEY Stop: 10/11/25 08:59 Last Admin: 09/13/25 07:49 Dose: 40 mg Azithromycin (Azithromycin 250 Mg Tab) 500 mg PO QAM KENNEY Stop: 09/16/25 08:59 Last Admin: 09/13/25 07:49 Dose: 500 mg Budesonide (Budesonide 0.5 Mg/2 Ml Vial (Pulmicort)) 0.5 mg NEB BIDR KENNEY Stop: 10/11/25 18:59 Last Admin: 09/13/25 07:14 Dose: 0.5 mg Dextrose (Dextrose 50% 50 Ml Syringe) 25 - 50 ml IV UD PRN; Protocol PRN Reason: Hypoglycemia Protocol Stop: 10/10/25 20:35 Enoxaparin Sodium (Enoxaparin Inj 40 Mg/0.4 Ml Syr) 40 mg SQ QAM KENNEY Stop: 10/11/25 08:59 Last Admin: 09/13/25 07:48 Dose: 40 mg Fluticasone/Vilanterol (Fluticasone/Vilanterol 100/25mcg 14 Puffs/Inhaler) 1 puffs INH DAILY KENNEY Stop: 10/11/25 08:59 Last Admin: 09/13/25 07:50 Dose: 1 puffs Formoterol Fumarate (Formoterol 20 Mcg/2 Ml Vial) 20 mcg NEB BIDR KENNEY Stop: 10/11/25 18:59 Last Admin: 09/13/25 07:14 Dose: 20 mcg Glucagon (Glucagon For Inj 1 Mg Vial) 1 mg SQ UD PRN; Protocol PRN Reason: Hypoglycemia Protocol Stop: 10/10/25 20:35 Glucose (Glucose 40% Gel 15 Gm Tube) 15 - 30 gm PO UD PRN; Protocol PRN Reason: Hypoglycemia Protocol Stop: 10/10/25 20:35 Glucose (Glucose 10 Tab/Tube) 4 - 8 tab PO UD PRN; Protocol PRN Reason: Hypoglycemia Protocol Stop: 10/10/25 20:35 Guaifenesin (Guaifenesin 600 Mg Tabcr) 600 mg PO Q12 KENNEY Stop: 10/10/25 20:59 Last Admin: 09/13/25 07:50 Dose: 600 mg Insulin Aspart (Insulin Aspart Per Unit Charge) 0 units SC ACHS KENNEY Stop: 10/10/25 20:59 Last Admin: 09/13/25 07:47 Dose: 12 units Miscellaneous (Carbohydrates For Hypoglycemia ) 15 - 30 gm PO UD PRN PRN Reason: Hypoglycemia Protocol Stop: 10/10/25 20:35 Coding Level of Care Code 53470 SUB INP/OBS CARE 3/50MIN Diagnoses Acute hypoxic on chronic hypercapnic respiratory failure J96.01; J96.12 COPD with emphysema J43.9 Nocturnal hypoxia G47.34 Dyspnea on exertion R06.09 Observed sleep apnea G47.30
[2025-09-13 11:18] VITALS: BP 123/74; RESP 19; TEMP 98.1
--- NOTE | 2025-09-13 12:42 | Discharge Summary ---
Discharge Summary Date of Service September 13, 2025 Principal Dx & Hospital Course #1 = Principal Diagnosis (1) Acute hypoxic on chronic hypercapnic respiratory failure: (2) Chronic hypercapnic respiratory failure: (3) COPD with emphysema: (4) Observed sleep apnea: (5) Former tobacco use: (6) Type 2 diabetes mellitus: (7) Coronary artery calcification seen on CAT scan: (8) Dyslipidemia: (9) Nocturnal hypoxia: Plan Patient 60-year-old gentleman Initially presented to urgent care with increasing shortness of breath over quite a period of time. In the urgent care he was noted to be quite hypoxic and sent to the emergency room. In the emergency room confirmed hypoxia and was referred for admission. Patient was cared for in the hospital. He was supported with oxygen therapy. He was treated with steroids and antibiotics for possible COPD exacerbation. Patient does have a significant history of asthma, smoking, occupational exposure that certainly could lead to some chronic pulmonary issues. Imaging of his chest revealed emphysematous changes. Pulmonary consultation was obtained. Further history revealed observed sleep apnea. Echocardiogram was performed which overall showed normal functioning. No evidence of right ventricular failure. He was started on daily inhalers. He was quickly titrated off IV steroids and subsequently oral steroids. Nocturnal pulse oximetry confirms nocturnal hypoxia. Two-step oxygen testing, confirmed that he required oxygen at all times. Case management was consulted to help coordinate home oxygen. Cardiology was consulted to evaluate for possible right ventricular dysfunction that was not seen on echocardiogram. Repeat echocardiogram was performed to with a bubble study. He does have significant coronary artery calcifications. Recommend outpatient cardiology follow-up after discharge determine any further ischemic evaluation. On the day of discharge he was tolerating his inhalers. He had stabilized on 3 L of oxygen with rest and 5 L with activity. He also received some additional diabetes education here in the hospital as far as checking his sugars and continue his metformin and will need further management of his diabetes outpatient. He be discharged home to follow-up with his PCP, pulmonary and cardiology. Notes For Next Care Provider Oxygen 3 L at rest and at night, 5 L with activity Follow-up with pulmonary, anticipate he will need sleep studies and PFTs Follow-up with cardiology determine if he patient needs any further ischemic eval Patient may need additional intervention on his diabetes Medication Changes From Visit Trelegy inhaler Aspirin daily Guaifenesin Admission HPI Per Admitting Provider This is a 60 y/o male with a history of asthma, dyslipidemia, and diabetes who presented to the ED from urgent care today with worsening shortness of breath and low oxygen sats. Pt reports ongoing respiratory issues for several years for which he has seen his PCP multiples times and has been given inhalers, which he never felt like helped much. However, over the last few weeks, his breathing has significantly worsened. He notes dyspnea with exertion, that worsens by evening. He notes wheezing, especially with exertion and at night. He has a chronic cough, productive of sputum but no hemoptysis. Cough has not significantly worsened over the last few weeks. He denies fevers, chills, night sweats, unexplained weight loss, chest pain. He occasionally has the sensation of heart skipping a beat, no racing heart. He has noted chest tightness at times. 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 He quit smoking several years ago. He denies history of pneumonia as an adult but notes that he was intermittently admitted due to respiratory issues his first year of life. Admission Exam Per Admitting Provider See H&P Discharge Exam Constitutional: Alert, nontoxic HEENT: Mucous membranes moist. Lungs: Decreased breath sounds, prolonged expiratory phase, no wheezes CV: S1-S2, regular Abdomen: Soft, nontender, nondistended Extremities: No significant edema Neuro: No focal deficits Psych: Cooperative, normal mood Updated Medication List Medication Instructions Recorded Confirmed Type atorvastatin 40 mg tablet 40 mg PO DAILY 09/10/25 09/10/25 History metformin 750 mg tablet,extended 750 mg PO BID 09/10/25 09/10/25 History release 24 hr albuterol sulfate 90 mcg/actuation 2 puff inhalation Q4H PRN Wheezing 09/13/25 Rx aerosol inhaler #8.5 grams aspirin 81 mg tablet,delayed 81 mg PO QAM #300 tabs 09/13/25 Rx release azithromycin 250 mg tablet 500 mg (2 x 250 mg) PO QAM #1 tab 09/13/25 Rx blood sugar diagnostic (OneTouch #100 ea 09/13/25 Rx Verio test strips) fluticasone fur. 200 mcg-umeclid 1 inh inhalation DAILY #60 ea 09/13/25 Rx 62.5 mcg-vilant 25 mcg inhalat.powder (Trelegy Ellipta) guaifenesin 600 mg tablet, 600 mg PO Q12 #60 tabs 09/13/25 Rx extended release 12 hr (Mucinex) lancets 33 gauge #100 ea 09/13/25 Rx Hospital Stay Data Consultations 09/10/25 15:55 ED Decision to Admit Stat 09/10/25 21:39 Consult Pulmonology Routine 09/12/25 13:15 Consult Cardiology Routine Diagnostic Imagining Performed 09/10/25 17:05 CT angio chest PE protocol Stat Reviewed imaging, laboratory and diagnostic studies. Pertinent findings as below. WBCs 11.7 Hemoglobin 14.7 Platelets of 283 Electrolytes stable Carbon dioxide 40 Creatinine 0.80 Hemoglobin A1c 8.5% Triglycerides 82 Total cholesterol 96 LDL 45 HDL 35 Respiratory viral panel negative Immunology testing ordered by pulmonary pending CTA of the chest negative for PE, emphysematous changes Echocardiogram ejection fraction 60 to 65%, no significant valvular abnormalities, some moderate mitral calcification Pending Results Patient Have Any Pending Studies at Discharge: No Discharge Instructions Given to Patient (Per Discharging Provider) He will need to wear the oxygen at all times. 3 L at rest and 5 L with activity Follow-up with pulmonary for additional testing. You will need sleep testing and additional 1 testing Monitor your glucose as recommended by the primary special educator. You need to follow-up with your PCP for ongoing management of your diabetes and better control. Recommend you follow-up with cardiology for additional testing as recommended Check blood glucose 1 time daily, take at the same time each day, record, and take log to your PCP Total Time Total Time Spent Total Time Spent (In Minutes): 42
--- NOTE | 2025-09-13 13:51 | XCELERA ---
[id number]
[2025-09-13 14:50] VITALS: PULSE 62; O2SAT 93
--- NOTE | 2025-09-13 16:49 | Electrocardiogram Report ---
Test Reason : Blood Pressure : */* mmHG Vent. Rate : 60 BPM Atrial Rate : 60 BPM P-R Int : 98 ms QRS Dur : 74 ms QT Int : 408 ms P-R-T Axes : 79 18 54 degrees QTcB Int : 408 ms Sinus rhythm with short CT Otherwise normal ECG No previous ECGs available Confirmed by Channing Bradley ([id number]) on 09/13/2025 4:48:47 PM Referred By: Confirmed By: Channing Bradley
[2025-09-18 14:37] LABS: Cytosolic 5 Nucleotidas E 1A <5 Units; EJ Ab <11 SI (<11); HMGCR Ab <2 CU (<20); MDA5 Ab <11 SI (<11); MI-2 Alpha Ab <11 SI (<11); MI-2 Beta Ab <11 SI (<11); NXP-2 Ab (MJ Ab) <11 SI (<11); OJ Ab <11 SI (<11); PL-12 Ab <11 SI (<11); PL-7 Ab <11 SI (<11); SRP Ab <11 SI (<11); TIF1 Gamma Ab <11 SI (<11)
== END 2025-09-13 17:30 | disposition home or self-care (01) | DRG 190 ==
LOC: ED 14:23 → SUATTDRO 17:46 → EDINP 17:46 → 2S 23:27